=== PATIENT | male | born 1960 | race Caucasian/White ===

== ENCOUNTER 2020-05-09 12:17 | Outpatient (REF) | payer OTHER, SELFPAY ==
[2020-05-09 14:35] LABS: Alanine Aminotransferase 39 U/L (0-40); Anion Gap 12 (12-20); Aspartate Amino Transferase 31 U/L (5-37); Blood Urea Nitrogen 15 mg/dL (9-16); Calcium 9.2 mg/dL (8.4-10.2); Carbon Dioxide 28 mmol/L (22-29); Chloride 100 mmol/L (96-108); Cholesterol 213 mg/dL; Estimated Glomerular Filt Rate > 60; Glucose Fasting 103 mg/dL (60-99); HDL Cholesterol 60 mg/dL; LDL Cholesterol Calculated 114 mg/dl; Potassium 4.3 mmol/l (3.3-5.1); Sodium 136 mmol/L (135-145); Triglycerides 195 mg/dL
== END 2020-05-09 12:18 | disposition home or self-care (01) ==
LOC: HO.HMGCLDS 12:17
PROVIDERS: PCP Internal Medicine; Visit Provider Internal Medicine
DX: I10 Essential (primary) hypertension (principal); E78.2 Mixed hyperlipidemia; Z87.39 Personal history of other diseases of the musculoskeletal system and connective tissue
CPT/HCPCS: 36415; 80048; 80061; 84450; 84460

== ENCOUNTER 2020-05-21 09:26 | Outpatient (REF) | payer OTHER, SELFPAY ==
--- NOTE | 2020-05-21 09:37 | XR_ITS ---
EXAMINATION: XR HIP, LEFT CLINICAL INFORMATION: Left hip pain. COMPARISON: Left hip radiographs dated 05/15/2015. TECHNIQUE: 2 views of the left hip. FINDINGS: No acute fracture or dislocation. Bveu-ku-llefuzgu joint space narrowing with subchondral cirrhosis and marginal osteophytes. No osseous erosion. Phleboliths within the pelvis. XR/XR hip LT min 2V IMPRESSION: Hdyh-td-enztjwvd left and posterior arthritis, slightly progressed when compared to the prior radiographs.
== END 2020-05-21 09:27 | disposition home or self-care (01) ==
LOC: HO.HMGCX 09:26
PROVIDERS: PCP Internal Medicine; Visit Provider Internal Medicine
DX: G89.29 Other chronic pain (principal); M25.552 Pain in left hip; I10 Essential (primary) hypertension; E78.5 Hyperlipidemia, unspecified; C61 Malignant neoplasm of prostate; Z80.42 Family history of malignant neoplasm of prostate; Z23 Encounter for immunization
CPT/HCPCS: 73502

== ENCOUNTER 2021-02-25 10:08 | Outpatient (REF) | payer OTHER, SELFPAY | END 2021-02-25 10:09 | disposition home or self-care (01) | LOC: HO.HMGCLDS 10:08 | PROVIDERS: PCP Internal Medicine; Visit Provider Internal Medicine | DX: Z13.89 Encounter for screening for other disorder (principal) ==

== ENCOUNTER 2021-02-26 10:15 | Outpatient (REF) | payer OTHER, SELFPAY ==
[2021-02-26 11:47] LABS: Alanine Aminotransferase 36 U/L (0-40); Anion Gap 13 (12-20); Aspartate Amino Transferase 24 U/L (5-37); Blood Urea Nitrogen 14 mg/dL (9-16); Calcium 9.7 mg/dL (8.4-10.2); Carbon Dioxide 26 mmol/L (22-29); Chloride 105 mmol/L (96-108); Cholesterol 193 mg/dL; Estimated Glomerular Filt Rate > 60; Glucose Fasting 101 mg/dL (60-99); HDL Cholesterol 58 mg/dL; LDL Cholesterol Calculated 117 mg/dl; Potassium 4.7 mmol/L (3.3-5.1); Sodium 139 mmol/L (135-145); Triglycerides 90 mg/dL
[2021-02-26 12:18] LABS: Vitamin D 25-OH Total 27.1 ng/mL (>30)
== END 2021-02-26 10:16 | disposition home or self-care (01) ==
LOC: HO.HMGCLDS 10:15
PROVIDERS: PCP Internal Medicine; Visit Provider Internal Medicine
DX: I10 Essential (primary) hypertension (principal); E78.5 Hyperlipidemia, unspecified; C61 Malignant neoplasm of prostate; Z80.42 Family history of malignant neoplasm of prostate
CPT/HCPCS: 36415; 80048; 80061; 82306; 84153; 84450; 84460

== ENCOUNTER 2021-09-02 09:49 | Outpatient (REF) | payer OTHER, SELFPAY ==
[2021-09-02 11:48] LABS: Alanine Aminotransferase 36 U/L (0-40); Anion Gap 13 (12-20); Aspartate Amino Transferase 23 U/L (5-37); Blood Urea Nitrogen 15 mg/dL (9-16); Calcium 9.6 mg/dL (8.4-10.2); Carbon Dioxide 23 mmol/L (22-29); Chloride 107 mmol/L (96-108); Cholesterol 213 mg/dL; Estimated Glomerular Filt Rate > 60; Glucose Fasting 105 mg/dL (60-99); HDL Cholesterol 56 mg/dL; LDL Cholesterol Calculated 142 mg/dl; Potassium 4.6 mmol/L (3.3-5.1); Sodium 138 mmol/L (135-145); Triglycerides 77 mg/dL
== END 2021-09-02 09:50 | disposition home or self-care (01) ==
LOC: HO.HMGCLDS 09:49
PROVIDERS: PCP Internal Medicine; Visit Provider Internal Medicine
DX: E78.5 Hyperlipidemia, unspecified (principal); I10 Essential (primary) hypertension
CPT/HCPCS: 36415; 80048; 80061; 82306; 84450; 84460

== ENCOUNTER 2022-03-10 07:29 | Day surgery (SDC) | payer OTHER, SELFPAY ==
[2022-03-03 12:31] VITALS: BMI 28.5
--- NOTE | 2022-03-09 12:42 | HO.ANESPROP2 ---
Documented by User: Samaria Bennett NP 03/09/22 12:43 HPI - Anesthesia Eval Consult details Narrative: 62yo M for Colonoscopy PMFSH Active Problems Active Problems: All Active Problems (Updated 09/04/21 @ 11:48 by Harriet Flanagan MD) Vitamin D deficiency (Acute) Tubular adenoma of colon (Acute) Family history of prostate cancer (Acute) Essential hypertension (Acute) Dyslipidemia (Acute) Chronic left hip pain (Acute) Past Medical History Medical History Chronic left hip pain Dyslipidemia Essential hypertension Family history of prostate cancer Tubular adenoma of colon Vitamin D deficiency Family History Family History Father No problems noted. Mother HTN (hypertension) Brain aneurysm Brother Medical history non-contributory Brother No problems noted. Sister No problems noted. Son No problems noted. Maternal Uncle Prostate cancer Surgical History Surgical History No pertinent past surgical history Social History Social History Housing: House Alcohol intake: current Patient Tobacco Use Status: Never used Tobacco e-Cigarette/Vaping Use: Never Used Use of substances other than those prescribed or required for medical reasons: No Are you DNR?: No Advance Directives: No Advance Directives Information Provided: Yes service: No Current occupational status: employed Cognitive needs: No Hearing needs: No Vision needs: No Meds Allergies Allergy/AdvReac Type Severity Reaction Status Date / Time No Known Allergies Allergy Verified 11/06/21 08:29 Home Medications Medication Instructions Recorded Confirmed Last Taken Type glucosamine 750 qo-loxgab-ilj 2-C 1 tab PO DAILY 05/21/20 03/10/22 Unknown History 30 mg-D3 1,000 unit-mauri 1 mg tablet (Uxknfitxdzm-Jnqweaascek-JOT + vitD) Exam Exam Date and Time: March 09, 2022 1242 Height,Weight and Vital Signs: Height 5 ft 11.5 in Weight 94.347 kg Pertinent Lab Results Pertinent Lab Results: Laboratory Tests 09/02/21 10:01 Sodium 138 Potassium 4.6 Chloride 107 Carbon Dioxide 23 BUN 15 Creatinine 0.80 Documented by User: Papito Forbes MD 03/10/22 08:31 PMFSH Past Medical History Medical History Chronic left hip pain Dyslipidemia Essential hypertension Family history of prostate cancer Tubular adenoma of colon Vitamin D deficiency Family History Family History Father No problems noted. Mother HTN (hypertension) Brain aneurysm Brother Medical history non-contributory Brother No problems noted. Sister No problems noted. Son No problems noted. Maternal Uncle Prostate cancer Family history of problems with anesthesia: No Surgical History Surgical History No pertinent past surgical history History of Problems with Anesthesia: No Social History Social History Housing: House Alcohol intake: current Patient Tobacco Use Status: Never used Tobacco e-Cigarette/Vaping Use: Never Used Use of substances other than those prescribed or required for medical reasons: No Are you DNR?: No Advance Directives: No Advance Directives Information Provided: Yes service: No Current occupational status: employed Cognitive needs: No Hearing needs: No Vision needs: No Meds Allergies Allergy/AdvReac Type Severity Reaction Status Date / Time No Known Allergies Allergy Verified 11/06/21 08:29 Home Medications Medication Instructions Recorded Confirmed Last Taken Type glucosamine 750 gd-wgfbsc-wut 2-C 1 tab PO DAILY 05/21/20 03/10/22 Unknown History 30 mg-D3 1,000 unit-mauri 1 mg tablet (Pphqdgftntm-Cqanejcmozw-CSE + vitD) Exam Airway Mallampati Class: II TM Dist: >3cm Neck ROM: Full Loose/Missing/Broken Teeth: Yes (straight teeth, many chipped globally) Heart: rrr+s1s2 Lungs: cta b/l Assessment and Plan Assessment Anesthesia Assessment: Anesthesia Plan Discussed and Chart Reviewed Final Anesthetic Review Family History of Problems with Anesthesia: No History of Problems with Anesthesia: No NPO: Yes ASA Class: II Final Preanesthetic Review: No Changes in Pt Med Stat, Meds/Allgs Chart Reviewed, Consent Obtained/Reviewed and Anes Risks/Benef Reviewed Patient Risk: Intermediate Procedure Risk: Intermediate Assessment/Block/Sedation in SS: Assess/Block/Sedation-SS Anesthetic Plan Anesthetic Plan: MAC: and Agree w/ Assess. and Plan Disposition: Standard PACU
[2022-03-10 07:37] VITALS: BMI 26.9
[2022-03-10 07:42] VITALS: BP 157/96; PULSE 74; RESP 16; TEMP 36.2; O2SAT 95
[2022-03-10] MEDS: Lactated Ringers 1,000 ML 100 ML IVCONT (08:01)
--- NOTE | 2022-03-10 08:24 | MHC.SHP ---
Pre-Procedural Eval Section A Date of Service: 03/10/22 Section B Chief Complaint: neoplasm of colon Relevant Family History (Specify if Yes): No Relevant Social History: Alcohol Use Present Medications: see Short Stay Collaborative assessment Medical History: Significant History (Chronic left hip pain Dyslipidemia Essential hypertension Family history of prostate cancer Tubular adenoma of colon Vitamin D deficiency) History of Previous Operations: Relevant previous surgery/procedure and date(s) (colonoscopy) Allergies: Allergies Allergy/AdvReac Type Severity Reaction Status Date / Time No Known Allergies Allergy Verified 11/06/21 08:29 Review of Systems Sugical H&P ROS: Negative: Constitution, Cardiovascular, Respiratory, Neurological, Psychiatric, Hem-Onc, Allergic/Immunologic, Gastrointestinal, Genitourinary, Musculoskeletal, Integumentary, Endocrine and Eyes/Ears/Nose/Throat Exam Surgical H&P Exam: Normal: HEENT, Normal: Heart, Normal: Lungs, Normal: Extremities, Normal: Abdomen, Normal: Skin and Normal: Neurological Plan Diagnosis/Plan: Unchanged I have reviewed the history and physical and performed a pertinent physical examination on my patient. No changes have occurred unless specified.
--- NOTE | 2022-03-10 08:35 | W.PM.OPN ---
Operative Note Operative Note Date of Service: 03/10/22 Narrative: Operative Information Procedure Description: Colonoscopy Indication: hx of polyps, screening Anesthesia: MAC COLONOSCOPY Instrument: Olympus variable stiffness pediatric scope 190L Colonoscopy Monitoring: Vital signs and clinical assessment, continuous EKG monitoring, Pulse oximetry, Carbon Dioxide monitoring and blood pressure monitoring were done throughout the procedure. Colon withdrawal time was 10 minutes. Procedure: The patient was placed in the left lateral decubitis position and pre-procedure medications were administered. After a digital rectal examination of the ano-rectum, the video colonoscope was inserted into the rectum and advanced through the colon to the cecum/TI. The colonoscope was slowly withdrawn in a retrograde panoramic fashion and the colon mucosa was carefully examined including a retroflexed view of the rectum. Findings and interventions are described below. Procedure Difficulty: easy Findings: Terminal Ileum-normal Cecum: 8-10 mm sessile polyp removed with cold snare Ascending Colon: x 2 sessile polyps 8-10 mm removed with cold snare and x 1 sessile polyp 5-6 mm removed with cold forceps Transverse Colon -normal Descending Colon: x 1 sessile polyp 8-10 mm removed with cold forceps Sigmoid Colon: mild diverticulosis Rectum: Retroflexion with small internal hemorrhoids, grade I Anorectum - normal Colon preparation: [place] Bowel Preparation Scale Right colon; 2 Transverse colon: 3 Left colon; 2 (0 = Unprepared colon segment with mucosa not seen due to solid stool that cannot be cleared. 1 = Portion of mucosa of the colon segment seen, but other areas of the colon segment not well seen due to staining, residual stool and/or opaque liquid. 2 = Minor amount of residual staining, small fragments of stool and/or opaque liquid, but mucosa of colon segment seen well. 3 = Entire mucosa of colon segment seen well with no residual staining, small fragments of stool or opaque liquid) Impression and Post Procedure Diagnosis: polyps internal hemorrhoids diverticular disease Plan: High fiber diet leaflet Avoid straining at stool, epsom salts and sitz bath, anusol supps or cream Repeat Colonoscopy in 3-4 years due to polyps or earlier if clinically indicated Above findings were reviewed with the patient and relevant handouts were provided if indicated.
[2022-03-10 09:05] VITALS: BP 132/86; PULSE 105; RESP 20; TEMP 36.8; O2SAT 95
[2022-03-10 09:20] VITALS: BP 141/94; PULSE 88; RESP 20; TEMP 36.8; O2SAT 96
== END 2022-03-10 09:53 | disposition home or self-care (01) ==
PROVIDERS: PCP Internal Medicine; Visit Provider Internal Medicine Gastroenterology
PROC: 0DJD8ZZ Inspection of Lower Intestinal Tract, Via Natural or Artificial Opening Endoscopic (ICD-10-PCS; CPT 45378; principal; 2022-03-10 08:30)
DX: Z12.11 Encounter for screening for malignant neoplasm of colon (principal); D12.2 Benign neoplasm of ascending colon; D12.0 Benign neoplasm of cecum; K63.5 Polyp of colon; K57.30 Diverticulosis of large intestine without perforation or abscess without bleeding; K64.0 First degree hemorrhoids; Z86.010 Personal history of colon polyps; I10 Essential (primary) hypertension; E78.5 Hyperlipidemia, unspecified; E55.9 Vitamin D deficiency, unspecified
CPT/HCPCS: 45385; 45380; 88305

== ENCOUNTER 2022-04-06 10:30 | Outpatient (REF) | payer OTHER, SELFPAY ==
[2022-04-06 12:24] LABS: Alanine Aminotransferase 43 U/L (0-40); Anion Gap 12 (12-20); Aspartate Amino Transferase 25 U/L (5-37); Blood Urea Nitrogen 15 mg/dL (9-16); Calcium 9.8 mg/dL (8.4-10.2); Carbon Dioxide 26 mmol/L (22-29); Chloride 104 mmol/L (96-108); Cholesterol 207 mg/dL; Estimated Glomerular Filt Rate > 60; Glucose Fasting 101 mg/dL (60-99); HDL Cholesterol 57 mg/dL; LDL Cholesterol Calculated 129 mg/dl; PSA,Total (Free>4and<10) 2.06 ng/mL (0.00-4.00); Potassium 4.3 mmol/L (3.3-5.1); Sodium 138 mmol/L (135-145); Triglycerides 108 mg/dL; Vitamin D 25-OH Total 27.6 ng/mL (>30)
== END 2022-04-06 10:31 | disposition home or self-care (01) ==
LOC: HO.HMGCLDS 10:30
PROVIDERS: PCP Internal Medicine; Visit Provider Internal Medicine
DX: Z12.5 Encounter for screening for malignant neoplasm of prostate (principal); I10 Essential (primary) hypertension; E78.5 Hyperlipidemia, unspecified; E55.9 Vitamin D deficiency, unspecified; Z80.42 Family history of malignant neoplasm of prostate
CPT/HCPCS: 36415; 80048; 80061; 82306; 84153; 84450; 84460

== ENCOUNTER 2022-11-09 09:31 | Outpatient (REF) | payer OTHER, SELFPAY ==
[2022-11-09 12:04] LABS: Estimated Average Glucose 117 mg/dL; Hemoglobin A1C 152.5599 umol/L; Hemoglobin A1c % 5.7 %
[2022-11-09 13:02] LABS: Alanine Aminotransferase 41 U/L (0-40); Anion Gap 13 (12-20); Aspartate Amino Transferase 38 U/L (5-37); Blood Urea Nitrogen 19 mg/dL (9-16); Calcium 9.7 mg/dL (8.4-10.2); Carbon Dioxide 27 mmol/L (22-29); Chloride 106 mmol/L (96-108); Cholesterol 169 mg/dL; Estimated Glomerular Filt Rate > 60; Glucose Fasting 112 mg/dL (60-99); HDL Cholesterol 60 mg/dL; LDL Cholesterol Calculated 97 mg/dl; Potassium 4.2 mmol/L (3.3-5.1); Sodium 142 mmol/L (135-145); Triglycerides 60 mg/dL; Vitamin D 25-OH Total 54.4 ng/mL (>30)
== END 2022-11-09 09:32 | disposition home or self-care (01) ==
LOC: HO.HMGCLDS 09:31
PROVIDERS: PCP Internal Medicine; Visit Provider Internal Medicine
DX: E55.9 Vitamin D deficiency, unspecified (principal); E78.5 Hyperlipidemia, unspecified; I10 Essential (primary) hypertension
CPT/HCPCS: 36415; 80048; 80061; 82306; 83036; 84450; 84460

== ENCOUNTER 2022-11-16 10:03 | Outpatient (AMB) | payer OTHER, SELFPAY ==
[2022-11-16 10:13] VITALS: BP 130/72; PULSE 66; O2SAT 97; BMI 27.6
--- NOTE | 2022-11-16 10:13 | MHC.PC.OV ---
Vital Signs 11/16/22 10:13 Height 5 ft 11 in Weight 198 lb BMI 27.6 BP 130/72 Blood Pressure Location Rt brachial Position Sitting Pulse 66 Pulse Source Pulse Oximeter Pulse Oximetry (%) 97 Oxygen Delivery Method Room Air Intake Visit Reasons: PE Intake Note: Pt is here today for his PE Allergies No Known Allergies Allergy (Verified 11/16/22 11:00) Medication List - Last Reconciled 11/16/22 by Harriet Flanagan MD atorvastatin 20 mg PO DAILY cholecalciferol (vitamin D3) 125 mcg PO DAILY vpvkoage-pctwk-yyq 2-C-D3-mauri 750-30-1,000-1 xj-mq-uzbh-mg (Nhcturctymb-Cocwnzwgfgz-GKU + vitD) 1 tab PO DAILY lisinopril 20 mg PO DAILY magnesium 250 mg PO DAILY omega 1-nrz-vdg-fish oil 1,000 mg (120 mg-180 mg) (Fish Oil) 1 cap PO DAILY potassium citrate mg PO psyllium husk (Metamucil) 1 tbsp PO DAILY Tobacco use date assessed: 11/16/22 Dental Screening Dental Screen Date: 11/16/22 Did you have a dental visit in the last 12 months?: Yes Did you have a dental problem in the last 6 months where you did not have access to dental care?: No Was dental information given to patient?: Patient has dentist HPI PE HPI Details And impaired fasting glucose, 62-year-old male with dyslipidemia, history of gouty arthritis, hypertension, here today for his physical exam. He had recent fasting labs done which showed lipids within normal limits,, but fasting blood sugar is elevated at 1 12 mg/dL. The rest of his labs all came back within normal limits. He has been feeling well except for occasional episodes of swelling and pain in his right big toe sometimes with on his left. Patient notices this after he eats a lot of seafood, particularly shellfish. He was given indomethacin by his brother, which has helped, would like a prescription of his own. He is up-to-date with all his vaccines except for his COVID booster which she does not want to get, and has not also had his shingles vaccine. He is up-to-date with screening colonoscopy. [facility] Medical History Chronic left hip pain Dyslipidemia Essential hypertension Family history of prostate cancer History of gout Tubular adenoma of colon Vitamin D deficiency Surgical History History of colonoscopy Family History Father No problems noted. Mother HTN (hypertension) Brain aneurysm Brother Medical history non-contributory Brother No problems noted. Sister No problems noted. Son No problems noted. Maternal Uncle Prostate cancer Social History Housing: House Alcohol intake: current Patient Tobacco Use Status: Never used Tobacco e-Cigarette/Vaping Use: Never Used service: No Current occupational status: employed Cognitive needs: No Hearing needs: No Vision needs: No Questionnaire PHQ-9 Over the last 2 weeks, how often have you been bothered by any of the following problems? 1. Little interest or pleasure in doing things: not at all 2. Feeling down, depressed, or hopeless: not at all 3. Trouble falling or staying asleep, or sleeping too much: not at all 4. Feeling tired or having little energy: not at all 5. Poor appetite or overeating: not at all 6. Feeling bad about yourself - or that you are a failure or have let yourself or your family down: not at all 7. Trouble concentrating on things, such as reading the newspaper or watching television: not at all 8. Moving or speaking so slowly that other people could have noticed. Or the opposite - being so fidgety or restless that you have been moving around a lot more than usual: not at all 9. Thoughts that you would be better off or of hurting yourself in some way: not at all Total score: 0 Depression Screening Interpretation: Negative 25403 - PHQ-9 Billing: Yes Source: Developed by Drs. Doug Mendoza, Mandi Jones, Reynaldo Ventura and colleagues, with an educational franci from [employer]. Thrive Questionnaire Date Thrive assessed: 11/16/22 I am a: Patient What is your living situation today?: I have a steady place to live Within the past 12 months, did the food you bought not last and you didn't have the money to get more?: Never true Within the past 12 months, did you worry whether your food would run out before you got money to buy more?: Never true Do you have trouble paying for medicines?: No Do you have trouble getting transportation to medical appointments?: No Do you have trouble paying your heating and electricity bill?: No Do you have trouble taking care of your child, family member or friend?: No Do you have trouble with day-to-day activities such as bathing, preparing meals, shopping, managing finances, etc.?: No Are you currently unemployed and looking for a job?: No Are you interested in more education?: No AUDIT C Alcohol Use Questionnaire (AUDIT-C) 1. How often do you have a drink containing alcohol?: 2-4 times a month 2. How many drinks containing alcohol do you have on a typical day when you are drinking?: 1 or 2 3. How often do you have six or more drinks on one occasion?: Never Total Score: 2 JEFF-7 AMB Questionnaire JEFF-7 Date JEFF - 7 assessed: 11/16/22 Feeling nervous, anxious, or on edge: 0 = Not at all Not being able to stop or control worryin = Not at all Worrying too much about different things: 0 = Not at all Trouble relaxin = Not at all Being so restless that it is hard to sit still: 0 = Not at all Becoming easily annoyed or irritable: 0 = Not at all Feeling afraid as if something awful might happen: 0 = Not at all Total JEFF-7 score (0-4 normal; 5-9 mild; 10-14 moderate; 15-21 severe): 0 Source: Developed by Drs. Doug Mendoza, Mandi Jones, Reynaldo Ventura and colleagues, with an educational franci from [employer]. JEFF-7 Assessment Billing JEFF-7 Assessment Tool: JEFF-7 Assessment 22528 Review of Systems Const Denies fatigue, Denies fever(s) and Denies poor appetite Eyes Denies change in vision ENT Denies dysphagia, Denies throat swelling and Denies tongue swelling Card Reports no additional complaints Resp Reports no additional complaints GI Denies abdominal pain, Denies melena, Denies bloating, Denies hematochezia, Denies dysphagia, Denies heartburn, Denies nausea, Denies vomiting and Denies hematemesis Reports no additional complaints Musc Reports as per HPI Skin/Breast Denies pruritus, Denies lesions and Denies photosensitivity Neuro Denies Abnormal speech present Psych Reports no additional complaints Endo Denies fatigue Barney/Lymph Reports no additional complaints Aller/Immun Denies throat swelling and Denies tongue swelling Physical exam (Primary Care) Vital Signs: Last Vital Signs Pulse 66 11/16/22 10:13 BP 130/72 11/16/22 10:13 Pulse Ox 97 11/16/22 10:13 Oxygen Delivery Method Room Air 11/16/22 10:13 BMI result Body Mass Index 27.6 BMI Assessment/Plan discussion: High BMI High, discussed plan: lifestyle, weight reduction, dietary and physical activity Tobacco/Smoking Status: Tobacco use Status Tobacco use date assessed 11/16/22 11/16/22 10:18 Patient Tobacco Use Status Never used Tobacco 11/16/22 10:18 e-Cigarette/Vaping Use Never Used 11/16/22 10:18 PHQ-9: PHQ-9 Score PHQ-9: Total score 0 11/16/22 11:09 Depression Screening Interpretation: Negative Thrive Assessment: Date of Thrive Assessment Date Thrive assessed 11/16/22 11/16/22 11:09 Const General: comfortable, no acute distress and alert Nutritional Appearance: overweight Orientation/consciousness: patient oriented x3 HENMT Mouth: Normal oral and palatal mucosa present and moist mucous membranes Eyes General: appearance normal, both eyes and all related structures Neck Neck: Yes full ROM, Yes no lymphadenopathy and Yes supple Thyroid: Thyroid normal Chest Chest palpation & inspection: normal inspection of the chest Resp Auscultation: clear to auscultation bilaterally Cardio Rate: regular rate Rhythm: regular rhythm Heart sounds: S1 normal heart sound present and S2 normal heart sound present GI Palpation (GI): Soft to palpation, nontender, no guarding and no masses Auscultation: normal bowel sounds Male General Exam: Yes normal external exam Back/Spine/Pelvis Back: No back tenderness Skin Other: Logan macular lesion noted on right cheek, and erythematous raised lesions noted on tip of his nose., black irregularly shaped raced skin lesion on anterior chest Neuro General: patient oriented x3, gait normal, tone normal, moves all extremities, Normal light touch and pain sensation, no focal motor deficits and CN's II-XI intact bilaterally Speech: No Abnormal speech present Extrem General: Yes full ROM, Yes no joint enlargement, Yes no pedal edema and Yes normal gait Psych Appearance: grossly normal and well kempt Mental Status: mental status grossly normal Speech and movement: Normal speech and movement present Affect: normal affect Attitude: cooperative Thought process: Normal thought process present Results Reviewed Results Reviewed: NTERED: 11/09/22 FREDDY STERLING: ORDERED: Met Prof Fast, AST, ALT, Lipid Panel, Vitamin D 25-OH Test Result Flag Reference Site Sodium 142 135-145 mmol/L Potassium 4.2 3.3-5.1 mmol/L CL 106 96-108 mmol/L CO2 27 22-29 mmol/L Gap 13 12-20 BUN 19 H 9-16 mg/dL Creat 0.89 0.5-1.4 mg/dL EGFR > 60 NOTE: For -[place] individuals, multiply the result by 1.210. Chronic Kidney Disease: Estimated GFR < 60 mL/min/1.73m2 Severe Kidney Disease: Estimated GFR < 15 mL/min/1.73m2 FBS 112 H 60-99 mg/dL A fasting glucose from 100-125 mg/dl is considered impaired (pre-diabetes). CA 9.7 8.4-10.2 mg/dL AST (GOT) 38 H 5-37 U/L ALT (GPT) 41 H 0-40 U/L Triglyceride 60 mg/dL Desirable Triglyceride: less than 150 mg/dL Borderline High Triglyceride 150-199 mg/dL High Triglyceride: 200-499 mg/dL Very High Triglyceride: greater than or equal to 5OO mg/dL Chol 169 mg/dL Desirable Cholesterol: less than 200 mg/dL Borderline High Cholesterol: 200-239 mg/dL High Cholesterol: greater than 239 mg/dL LDL Calculated 97 mg/dl Desirable LDL: less than 100 mg/dL Near Optimal/Above Optimal LDL: 110-129 mg/dL Borderline High LDL: 130-159 mg/dL High LDL: 160-189 mg/dL Very High LDL: greater than or equal to 190 mg/dL HDL 60 mg/dL Desirable HDL: greater than 40 mg/dL Note: This HDL assay may give artificially low results in patients with liver disease. Vit D 25-OH Tot 54.4 >30 ng/mL Health Based Reference Values* < 20 ng/mL Deficient 20-30 ng/mL Insufficient > 30 ng/mL Sufficient Assessment and Plan Assessment & Plan (1) Annual visit for general adult medical examination with abnormal findings: Code(s): Z00.01 - Encounter for general adult medical examination with abnormal findings Plan: Reviewed and discussed recent fasting lab results with patient. Recommended dental visit every 6 months and regular eye exams, at least every 2 years. Take adequate calcium in diet and vitamin-D 3 at 2000 IU per cap once a day, in addition to weight-bearing exercises to help maintain good muscle tone and weight control. Advised to do regular ers self-testicular exam to check for any mass. Up-to-date with his vaccinations, but does not want to get COVID booster, reminded to get his shingles vaccine, up-to-date with his colonoscopy screening. (2) Essential hypertension: Code(s): I10 - Essential (primary) hypertension Plan: Blood pressure at goal of less than 130/80. Continue with current medication. Reinforced importance of following a low sodium diet, getting regular exercise, and lowering stress levels. (3) Dyslipidemia: Code(s): E78.5 - Hyperlipidemia, unspecified Plan: Reviewed recent fasting lipid profile with patient with levels within normal limits . Continue with atorvastatin , but decrease dosing frequency to 20 mg every other day , in addition to adherence to low-cholesterol diet and regular exercise, at least 30 minutes 3 to 4 times a week. Advised patient to make healthy food choices, eat more fruits, vegetables, whole grains, wild caught fish and low-fat dairy. Limit amount of meat and fried or fatty food products, as well as processed foods and fast foods. Follow-up scheduled with repeat fasting lipid panel in 3 months. (4) Lesion of skin of face: Code(s): L98.9 - Disorder of the skin and subcutaneous tissue, unspecified Plan: Referred to dermatology for further evaluation management and for skin cancer screening (5) History of gout: Code(s): Z87.39 - Personal history of other diseases of the musculoskeletal system and connective tissue Plan: Advised to follow a low purine diet, will check serum uric acid on next lab draw. Prescription sent for indomethacin 50 mg per capsule to take once a day only as needed for severe joint pain and swelling. Orders: Orders Lipid Panel 3 Months E55.9 - Vitamin D deficiency, unspecified, E78.5 - Hyperlipidemia, unspecified, I10 - Essential (primary) hypertension, Z00.01 - Encounter for general adult medical examination with abnormal findings Alanine Aminotransferase 3 Months E55.9 - Vitamin D deficiency, unspecified, E78.5 - Hyperlipidemia, unspecified, I10 - Essential (primary) hypertension, Z00.01 - Encounter for general adult medical examination with abnormal findings Aspartate Amino Transferase 3 Months E55.9 - Vitamin D deficiency, unspecified, E78.5 - Hyperlipidemia, unspecified, I10 - Essential (primary) hypertension, Z00.01 - Encounter for general adult medical examination with abnormal findings Basic Metabolic Panel Fasting 3 Months E55.9 - Vitamin D deficiency, unspecified, E78.5 - Hyperlipidemia, unspecified, I10 - Essential (primary) hypertension, Z00.01 - Encounter for general adult medical examination with abnormal findings Uric Acid 3 Months E55.9 - Vitamin D deficiency, unspecified, E78.5 - Hyperlipidemia, unspecified, I10 - Essential (primary) hypertension, Z00.01 - Encounter for general adult medical examination with abnormal findings Vitamin D 25-OH Total 3 Months E55.9 - Vitamin D deficiency, unspecified, E78.5 - Hyperlipidemia, unspecified, I10 - Essential (primary) hypertension, Z00.01 - Encounter for general adult medical examination with abnormal findings Referrals Dermatology Referral L98.9 - Disorder of the skin and subcutaneous tissue, unspecified, Z12.83 - Encounter for screening for malignant neoplasm of skin Medications: New indomethacin administer with food or milk 25 mg PO BID 60 caps 0RF Z87.39 - Personal history of other diseases of the musculoskeletal system and connective tissue Changed From atorvastatin 20 mg PO DAILY 90 tabs 3RF To atorvastatin 20 mg PO Q2D 90 tabs 3RF Coding Level of Care Code Est Pt Prev Care 40-64y(89437) Diagnoses Annual visit for general adult medical examination with abnormal findings Z00.01 Essential hypertension I10 Dyslipidemia E78.5 Lesion of skin of face L98.9 History of gout Z87.39 Additional Codes JEFF-7 Assessment Billing - JEFF-7 Assessment Tool: JEFF-7 Assessment 55630 ([id number])
== END 2022-11-16 12:42 | disposition home or self-care (01) ==
PROVIDERS: Visit Provider Internal Medicine
DX: Z00.01 Encounter for general adult medical examination with abnormal findings (principal); I10 Essential (primary) hypertension; Z87.39 Personal history of other diseases of the musculoskeletal system and connective tissue; E78.5 Hyperlipidemia, unspecified; L98.9 Disorder of the skin and subcutaneous tissue, unspecified
CPT/HCPCS: 99396

== ENCOUNTER 2022-11-30 14:48 | Outpatient (AMB) | payer OTHER, SELFPAY ==
[2022-11-30 16:25] VITALS: BP 128/70; PULSE 70; TEMP 36.6; O2SAT 98; BMI 27.6
--- NOTE | 2022-11-30 16:25 | MHC.OFFWIV ---
Intake Vital Signs 11/30/22 16:25 Height 5 ft 11 in Weight 198 lb BMI 27.6 BP 128/70 Blood Pressure Location Lt brachial Position Sitting Pulse 70 Pulse Source Pulse Oximeter Temp 97.8 F Temp Source Temporal Artery Scan Pulse Oximetry (%) 98 Oxygen Delivery Method Room Air Intake Visit Reasons: EST/losing voice/[phone] Intake Note: pt is here for c/o losing voice for 2 weeks Patient Tobacco Use Status: Never used Tobacco Allergies No Known Allergies Allergy (Verified 11/30/22 16:26) Medication List - Last Reconciled 11/30/22 by Shasha Roth PA-C atorvastatin 20 mg PO Q2D cholecalciferol (vitamin D3) 125 mcg PO DAILY zvqiaydp-tyscf-ynv 2-C-D3-mauri 750-30-1,000-1 in-hq-dqez-mg (Mzsoczolagy-Rfvriikopnt-TBN + vitD) 1 tab PO DAILY indomethacin 25 mg PO BID lisinopril 20 mg PO DAILY magnesium 250 mg PO DAILY psyllium husk (Metamucil) 1 tbsp PO DAILY Do you need a note to return to daycare/school/sports/work: No HPI HPI Comments History of Present Illness Details This is a 62-year-old male with a past medical history of hypertension and hyperlipidemia presenting for evaluation of hoarseness x1 week. Patient denies having any fevers, chills, sore throat, ear pain. shortness of breath or difficulty swallowing. Patient does states that he wakes with a cough in the morning with mild phlegm. Patient denies any hemoptysis. Patient is not taking any xiux-yqv-wlkmbzl medication for treatment of his symptoms. [facility] Medical History Chronic left hip pain Dyslipidemia Essential hypertension Family history of prostate cancer History of gout Tubular adenoma of colon Vitamin D deficiency Surgical History History of colonoscopy Family History Father No problems noted. Mother HTN (hypertension) Brain aneurysm Brother Medical history non-contributory Brother No problems noted. Sister No problems noted. Son No problems noted. Maternal Uncle Prostate cancer Social History Housing: House Alcohol intake: current Patient Tobacco Use Status: Never used Tobacco e-Cigarette/Vaping Use: Never Used service: No Current occupational status: employed Cognitive needs: No Hearing needs: No Vision needs: No Review of Systems Const All systems reviewed & are unremarkable except as noted in HPI and below Denies chills, Denies fatigue and Denies fever(s) Eyes Reports no additional complaints and Denies itchy eyes ENT Denies otalgia, Denies facial pain, Reports hoarseness, Denies lip swelling, Denies sore throat, Denies throat swelling and Denies tongue swelling Card Reports no additional complaints Resp Reports cough (with phlegm in the morning only) and Denies hemoptysis GI Reports no additional complaints Reports no additional complaints Musc Reports no additional complaints Skin/Breast Reports system reviewed and no additional complaints, except as documented Psych Reports no additional complaints Endo Denies fatigue Aller/Immun Denies itchy eyes, Denies lip swelling, Denies throat swelling and Denies tongue swelling Physical Exam Vital Signs: Last Vital Signs Temp 97.8 F 11/30/22 16:25 Pulse 70 11/30/22 16:25 BP 128/70 11/30/22 16:25 Pulse Ox 98 11/30/22 16:25 Oxygen Delivery Method Room Air 11/30/22 16:25 BMI result Body Mass Index 27.6 Const General: cooperative, healthy appearing, no acute distress and well developed; No ill appearing, intoxicated appearing or lethargic Nutritional Appearance: average body habitus Orientation/consciousness: patient oriented x3 and No lethargic Limitations: no limitations HEENT Head: Yes normal to inspection and Yes normocephalic Ears: hearing grossly normal bilaterally, external ears normal and TM abnormal bulging bilateral; not erythematous, with no fluid behind the TM, not perforated and not scarred General nose exam: Normal external nose present Face and sinus: Yes sinuses nontender Mouth: moist mucous membranes and other (There is no edema, erythema or exudates of the posterior oropharynx) Throat: Yes posterior oropharynx normal Eyes General: appearance normal, both eyes and all related structures Conjunctivae: conjunctivae normal Pupils: Equal, round and reactive pupils present EOM: EOMs intact bilaterally Resp Effort & Inspection: normal respiratory effort Auscultation: clear to auscultation bilaterally Neuro General: patient oriented x3 Cranial nerves: Yes Equal, round and reactive pupils present Cognition (Neuro): normal cognition Psych Appearance: grossly normal Speech and movement: Normal speech and movement present Affect: normal affect Attitude: cooperative Thought process: Normal thought process present Thought content: Normal thought content present Insight: Good insight present (Psych) Assessment & Plan Assessment & Plan (1) Allergic sinusitis: Code(s): J30.9 - Allergic rhinitis, unspecified (2) Hoarseness of voice: Code(s): R49.0 - Dysphonia Plan Patient will be discharged home and instructed to use loratadine once daily for at least 2 weeks. He will follow his primary care provider as an outpatient within 7-10 days for a re-evaluation of his symptoms. Coding Level of Care Code Established Pt Est Pt Level 2 (38749) Patient Type Established History Problem Focused Exam Problem Focused Medical Decision Making Low Complexity Diagnoses Allergic sinusitis J30.9 Hoarseness of voice R49.0 Time Spent (min) 15
== END 2022-11-30 16:47 | disposition home or self-care (01) ==
PROVIDERS: PCP Internal Medicine; Visit Provider Physician Assistant
DX: J30.9 Allergic rhinitis, unspecified (principal); R49.0 Dysphonia
CPT/HCPCS: 99212

== ENCOUNTER 2023-02-09 10:42 | Outpatient (REF) | payer OTHER, SELFPAY ==
[2023-02-09 14:32] LABS: Alanine Aminotransferase 37 U/L (0-40); Anion Gap 15 (12-20); Aspartate Amino Transferase 31 U/L (5-37); Blood Urea Nitrogen 16 mg/dL (9-16); Calcium 9.8 mg/dL (8.4-10.2); Carbon Dioxide 25 mmol/L (22-29); Chloride 104 mmol/L (96-108); Cholesterol 188 mg/dL (<200); Estimated Glomerular Filt Rate > 60; Glucose Fasting 106 mg/dL (60-99); HDL Cholesterol 59 mg/dL (>40); LDL Cholesterol Calculated 116 mg/dL (<100); Potassium 4.5 mmol/L (3.3-5.1); Sodium 139 mmol/L (135-145); Triglycerides 67 mg/dL (<150); Uric Acid 8.8 mg/dL (3.4-7.0)
[2023-02-09 14:38] LABS: Vitamin D 25-OH Total 93.6 ng/mL (>30)
== END 2023-02-09 10:43 | disposition home or self-care (01) ==
LOC: HO.HMGCLDS 10:42
PROVIDERS: PCP Internal Medicine; Visit Provider Internal Medicine
DX: Z00.01 Encounter for general adult medical examination with abnormal findings (principal); E55.9 Vitamin D deficiency, unspecified; I10 Essential (primary) hypertension; E78.5 Hyperlipidemia, unspecified
CPT/HCPCS: 36415; 80048; 80061; 82306; 84450; 84460; 84550

== ENCOUNTER 2023-02-16 08:46 | Outpatient (AMB) | payer OTHER, SELFPAY ==
[2023-02-16 09:07] VITALS: BP 130/88; PULSE 71; O2SAT 97; BMI 28.1
--- NOTE | 2023-02-16 09:07 | MHC.PC.OV ---
Vital Signs 02/16/23 09:07 Height 5 ft 11 in Weight 201 lb 4 oz BMI 28.1 BP 130/88 Blood Pressure Location Lt brachial Position Sitting Pulse 71 Pulse Source Pulse Oximeter Pulse Oximetry (%) 97 Oxygen Delivery Method Room Air Intake Visit Reasons: 3mo. lipids after med adj. and gout Intake Note: pt is here to follow up for lab results and to follow up for gout Allergies No Known Allergies Allergy (Verified 11/18/23 09:32) Medication List - Last Reconciled 02/16/23 by Harriet Flanagan MD allopurinol 100 mg PO DAILY atorvastatin 10 mg PO DAILY cholecalciferol (vitamin D3) 125 mcg PO DAILY gzcncvqb-tfqxt-qkb 2-C-D3-mauri 750-30-1,000-1 te-lj-yoor-mg (Vdkunrxlpfj-Vhitpzfhmen-IXO + vitD) 1 tab PO DAILY indomethacin 25 mg PO BID PRN lisinopril 20 mg PO DAILY magnesium 250 mg PO DAILY psyllium husk (Metamucil) 1 tbsp PO DAILY Tobacco use date assessed: 02/16/23 Dental Screening Dental Screen Date: 02/16/23 Did you have a dental visit in the last 12 months?: Yes Did you have a dental problem in the last 6 months where you did not have access to dental care?: No Was dental information given to patient?: Patient has dentist HPI 3mo. lipids after med adj. and gout HPI Details 63-year-old male here today for follow-up on his lipids. He has been taking 20 mg of atorvastatin every other day, and had recent fasting lipid panel done which showed lipids within normal limits. His uric acid level however was noted to be elevated and patient has been complaining of intermittent episodes of pain and swelling in joints. [facility] Medical History History of gout Elevated liver enzymes History of adenomatous polyp of colon History of basal cell cancer Vitamin D deficiency Family history of prostate cancer Essential hypertension Dyslipidemia Chronic left hip pain Surgical History History of colonoscopy Family History Father No problems noted. Mother HTN (hypertension) Brain aneurysm Brother Medical history non-contributory Brother No problems noted. Sister No problems noted. Son No problems noted. Maternal Uncle Prostate cancer Social History Housing: House Alcohol intake: current Patient Tobacco Use Status: Never used Tobacco e-Cigarette/Vaping Use: Never Used service: No Current occupational status: employed Cognitive needs: No Hearing needs: No Vision needs: No Questionnaire Thrive Questionnaire Date Thrive assessed: 11/16/22 JEFF-7 AMB Questionnaire JEFF-7 Date JEFF - 7 assessed: 11/16/22 Source: Developed by Drs. Doug Mendoza, Mandi Jones, Reynaldo Ventura and colleagues, with an educational franci from [employer] Document Preparation. Review of Systems Const Denies chills, Denies fatigue and Denies fever(s) Eyes Reports no additional complaints Card Reports no additional complaints GI Reports no additional complaints Reports no additional complaints Musc Reports no additional complaints Skin/Breast Details: Sees [facility] for follow-up every 6 month Reports system reviewed and no additional complaints, except as documented Neuro Denies Abnormal speech present Psych Reports no additional complaints Endo Denies fatigue Barney/Lymph Reports no additional complaints Physical exam (Primary Care) Vital Signs: Last Vital Signs Pulse 71 02/16/23 09:07 BP 130/88 02/16/23 09:07 Pulse Ox 97 02/16/23 09:07 Oxygen Delivery Method Room Air 02/16/23 09:07 BMI result Body Mass Index 28.1 Tobacco/Smoking Status: Tobacco use Status Tobacco use date assessed 02/16/23 02/16/23 09:11 Patient Tobacco Use Status Never used Tobacco 02/16/23 09:07 e-Cigarette/Vaping Use Never Used 02/16/23 09:07 Thrive Assessment: Date of Thrive Assessment Date Thrive assessed 11/16/22 02/16/23 09:07 Const General: comfortable, no acute distress and alert Nutritional Appearance: overweight Orientation/consciousness: patient oriented x3 HENMT Mouth: Normal oral and palatal mucosa present and moist mucous membranes Eyes General: appearance normal, both eyes and all related structures Neck Neck: Yes full ROM, Yes no lymphadenopathy and Yes supple Thyroid: Thyroid normal Resp Auscultation: clear to auscultation bilaterally Cardio Rate: regular rate Rhythm: regular rhythm Heart sounds: S1 normal heart sound present and S2 normal heart sound present GI Palpation (GI): Soft to palpation, nontender, no guarding and no masses Auscultation: normal bowel sounds Back/Spine/Pelvis Back: No back tenderness Skin General skin exam: no rashes or lesions noted Neuro General: patient oriented x3, gait normal, tone normal, moves all extremities, Normal light touch and pain sensation, no focal motor deficits and CN's II-XI intact bilaterally Speech: No Abnormal speech present Extrem General: Yes full ROM, Yes no joint enlargement, Yes no pedal edema and Yes normal gait Office Procedures Flu Questionnaire Does the patient have a severe egg allergy?: No Does the patient have severe life threatening allergies?: No Does the patient have a fever or illness today?: No Has the patient ever had Guillain-[place] Syndrome?: No Has the patient ever had any past reaction to a flu shot?: No Immunizations flu vacc [id number] 6mos up(PF) 60 mcg(15 mcgx4)/0.5 mL IM syringe Performing Provider: Harriet Flanagan MD [facility] Administered by: Pamela Crawford CMA on 02/16/23 09:25 Dose Route Admin Location Dispensed Lot Number Expiration Date NDC Casing Crew Pusher 0.5 mL IM Right Deltoid 0.5 mL [id number] 10/17/23 [id number] [employer] VIS Given Date VIS Provided VIS Publication Date 02/16/23 Single Vaccine 20 Eligibility Eligibility Date Funding Source Not [facility] Eligible 02/16/23 Private Results Reviewed Results Reviewed: SPEC : [id number] RAMIRO: 02/09/23 STATUS: COMP REQ : [id number] RECD: 02/09/[address]: Harriet Flanagan MD COMP: 02/09/238 ENTERED: 02/09/23-[address]: ORDERED: Met Prof Fast, Uric, AST, ALT, Lipid Panel, Vitamin D 25-OH Test Result Flag Reference Site Sodium 139 135-145 mmol/L Potassium 4.5 3.3-5.1 mmol/L CL 104 96-108 mmol/L CO2 25 22-29 mmol/L Gap 15 12-20 BUN 16 9-16 mg/dL Creat 0.81 0.5-1.4 mg/dL EGFR > 60 NOTE: For -[place] individuals, multiply the result by 1.210. Chronic Kidney Disease: Estimated GFR < 60 mL/min/1.73m2 Severe Kidney Disease: Estimated GFR < 15 mL/min/1.73m2 FBS 106 H 60-99 mg/dL A fasting glucose from 100-125 mg/dl is considered impaired (pre-diabetes). Uric Acid 8.8 H 3.4-7.0 mg/dL CA 9.8 8.4-10.2 mg/dL AST (GOT) 31 5-37 U/L ALT (GPT) 37 0-40 U/L Triglyceride 67 <150 mg/dL Desirable Triglyceride: less than 150 mg/dL Borderline High Triglyceride 150-199 mg/dL High Triglyceride: 200-499 mg/dL Very High Triglyceride: greater than or equal to 5OO mg/dL Cholesterol 188 <200 mg/dL Desirable Cholesterol: less than 200 mg/dL Borderline High Cholesterol: 200-239 mg/dL High Cholesterol: greater than 239 mg/dL LDL Calculated 116 H <100 mg/dL Desirable LDL: less than 100 mg/dL Near Optimal/Above Optimal LDL: 110-129 mg/dL Borderline High LDL: 130-159 mg/dL High LDL: 160-189 mg/dL Very High LDL: greater than or equal to 190 mg/dL HDL 59 >40 mg/dL Desirable HDL: greater than 40 mg/dL Note: This HDL assay may give artificially low results in patients with liver disease. Vit D 25-OH Tot 93.6 >30 ng/mL Health Based Reference Values* < 20 ng/mL Deficient 20-30 ng/mL Insufficient > 30 ng/mL Sufficient Assessment and Plan Assessment & Plan (1) Dyslipidemia: Code(s): E78.5 - Hyperlipidemia, unspecified Plan: Reviewed recent fasting lipid profile with patient with levels within normal limit . Continue with atorvastatin but now decrease dose to 10 mg taken 1 tablet daily , in addition to adherence to low-cholesterol diet and regular exercise, at least 30 minutes 3 to 4 times a week. Advised patient to make healthy food choices, eat more fruits, vegetables, whole grains, wild caught fish and low-fat dairy. Limit amount of meat and fried or fatty food products, as well as processed foods and fast foods. Follow-up scheduled with repeat fasting lipid panel in 6 months. (2) Essential hypertension: Code(s): I10 - Essential (primary) hypertension Plan: Blood pressure stable controlled on lisinopril 20 mg taken once a (3) Vitamin D deficiency: Code(s): E55.9 - Vitamin D deficiency, unspecified Plan: Continue taking vitamin-D 3 supplements daily (4) History of gout: Code(s): Z87.39 - Personal history of other diseases of the musculoskeletal system and connective tissue Plan: Prescription sent for allopurinol 100 mg per tablet taken once a day, cut back on high purine diet, prescription also sent for indomethacin 25 mg taken 1 tablet once a day as needed for acute attacks of gout cut back on alcohol intake Orders: Orders Lipid Panel 11/15/23 Z87.39 - Personal history of other diseases of the musculoskeletal system and connective tissue, E55.9 - Vitamin D deficiency, unspecified, Z80.42 - Family history of malignant neoplasm of prostate, I10 - Essential (primary) hypertension, E78.5 - Hyperlipidemia, unspecified Basic Metabolic Panel Fasting 11/15/23 Z87.39 - Personal history of other diseases of the musculoskeletal system and connective tissue, E55.9 - Vitamin D deficiency, unspecified, Z80.42 - Family history of malignant neoplasm of prostate, I10 - Essential (primary) hypertension, E78.5 - Hyperlipidemia, unspecified Alanine Aminotransferase 11/15/23 Z87.39 - Personal history of other diseases of the musculoskeletal system and connective tissue, E55.9 - Vitamin D deficiency, unspecified, Z80.42 - Family history of malignant neoplasm of prostate, I10 - Essential (primary) hypertension, E78.5 - Hyperlipidemia, unspecified Vitamin D 25-OH Total 11/15/23 Z87.39 - Personal history of other diseases of the musculoskeletal system and connective tissue, E55.9 - Vitamin D deficiency, unspecified, Z80.42 - Family history of malignant neoplasm of prostate, I10 - Essential (primary) hypertension, E78.5 - Hyperlipidemia, unspecified PSA,Total (Free>4and<10) 11/15/23 Z87.39 - Personal history of other diseases of the musculoskeletal system and connective tissue, E55.9 - Vitamin D deficiency, unspecified, Z80.42 - Family history of malignant neoplasm of prostate, I10 - Essential (primary) hypertension, E78.5 - Hyperlipidemia, unspecified Influenza [id number] Immunization 02/16/23 Z23 - Encounter for immunization Uric Acid 11/15/23 Z87.39 - Personal history of other diseases of the musculoskeletal system and connective tissue, E55.9 - Vitamin D deficiency, unspecified, Z80.42 - Family history of malignant neoplasm of prostate, I10 - Essential (primary) hypertension, E78.5 - Hyperlipidemia, unspecified Aspartate Amino Transferase 11/15/23 Z87.39 - Personal history of other diseases of the musculoskeletal system and connective tissue, E55.9 - Vitamin D deficiency, unspecified, Z80.42 - Family history of malignant neoplasm of prostate, I10 - Essential (primary) hypertension, E78.5 - Hyperlipidemia, unspecified Medications: New allopurinol 100 mg PO DAILY 90 tabs 2RF atorvastatin 10 mg PO DAILY 90 tabs 3RF indomethacin administer with food or milk 25 mg PO BID PRN 30 caps 0RF gout Z87.39 - Personal history of other diseases of the musculoskeletal system and connective tissue Refilled lisinopril 20 mg PO DAILY 90 tabs 3RF Discontinued atorvastatin Discontinued Reason: Doctor's Order 20 mg PO Q2D 90 tabs 3RF Coding Level of Care Code Est Pt Level 4 (62915) Diagnoses Dyslipidemia E78.5 Essential hypertension I10 Vitamin D deficiency E55.9 History of gout Z87.39
== END 2023-02-16 10:44 | disposition home or self-care (01) ==
PROVIDERS: PCP Internal Medicine; Visit Provider Internal Medicine
DX: E78.5 Hyperlipidemia, unspecified (principal); I10 Essential (primary) hypertension; E55.9 Vitamin D deficiency, unspecified; Z87.39 Personal history of other diseases of the musculoskeletal system and connective tissue
CPT/HCPCS: 90471; 90686; 99499

== ENCOUNTER 2023-11-10 11:40 | Outpatient (REF) | payer OTHER, SELFPAY ==
[2023-11-10 14:01] LABS: Alanine Aminotransferase 45 U/L (0-40); Anion Gap 15 (12-20); Aspartate Amino Transferase 38 U/L (5-37); Blood Urea Nitrogen 14 mg/dL (9-16); Calcium 9.8 mg/dL (8.4-10.2); Carbon Dioxide 24 mmol/L (22-29); Chloride 106 mmol/L (96-108); Cholesterol 184 mg/dL (<200); Estimated Glomerular Filt Rate > 60; Glucose Fasting 113 mg/dL (60-99); HDL Cholesterol 64 mg/dL (>40); LDL Cholesterol Calculated 105 mg/dL (<100); Potassium 4.3 mmol/L (3.3-5.1); Sodium 141 mmol/L (135-145); Triglycerides 77 mg/dL (<150); Uric Acid 5.3 mg/dL (3.4-7.0)
[2023-11-10 14:10] LABS: PSA,Total (Free>4and<10) 2.24 ng/mL (0.00-4.00)
== END 2023-11-10 11:41 | disposition home or self-care (01) ==
LOC: HO.HMGCLDS 11:40
PROVIDERS: PCP Internal Medicine; Visit Provider Internal Medicine
DX: I10 Essential (primary) hypertension (principal); E78.5 Hyperlipidemia, unspecified; Z80.42 Family history of malignant neoplasm of prostate; E55.9 Vitamin D deficiency, unspecified; Z87.39 Personal history of other diseases of the musculoskeletal system and connective tissue; Z12.5 Encounter for screening for malignant neoplasm of prostate
CPT/HCPCS: 36415; 80048; 80061; 82306; 84153; 84450; 84460; 84550

== ENCOUNTER 2023-11-18 08:55 | Outpatient (AMB) | payer OTHER, SELFPAY ==
[2023-11-18 08:59] VITALS: BP 138/92; PULSE 90; O2SAT 97; BMI 26.9
--- NOTE | 2023-11-18 08:59 | MHC.PC.OV ---
Vital Signs 11/18/23 08:59 Height 5 ft 11 in Weight 193 lb BMI 26.9 BP 138/92 H Blood Pressure Location Rt brachial Position Sitting Pulse 90 Pulse Source Pulse Oximeter Pulse Oximetry (%) 97 Oxygen Delivery Method Room Air Intake Visit Reasons: PE Intake Note: Pt is here today for his PE: Last colonoscopy 03/10/22 Allergies No Known Allergies Allergy (Verified 11/18/23 09:32) Medication List - Last Reconciled 11/18/23 by Harriet Flanagan MD allopurinol 100 mg PO DAILY atorvastatin 10 mg PO DAILY cholecalciferol (vitamin D3) 125 mcg PO DAILY qegtxqfl-qkddh-yip 2-C-D3-mauri 750-30-1,000-1 be-hn-bgrh-mg (Pyadcitrohm-Ddnslfythtw-NCP + vitD) 1 tab PO DAILY indomethacin 25 mg PO BID PRN lisinopril 20 mg PO DAILY magnesium 250 mg PO DAILY psyllium husk (Metamucil) 1 tbsp PO DAILY Tobacco use date assessed: 11/18/23 Dental Screening Dental Screen Date: 11/18/23 Did you have a dental visit in the last 12 months?: Yes Did you have a dental problem in the last 6 months where you did not have access to dental care?: No Was dental information given to patient?: Patient has dentist HPI PE HPI Details 63-year-old male here today for physical exam. He is up-to-date with his screening colonoscopy, done by Dr. Quispe with removal of a tubular adenoma polyp. Had recent fasting labs done with lipids within normal limits, currently on atorvastatin 10 mg daily. Has history of gout, with no acute attacks in the past year, currently on allopurinol and has indomethacin to take as needed. He takes lisinopril 20 mg daily for blood pressure control. Has history of basal cell cancer currently followed by [facility] every 6 months [facility] Medical History (Updated 11/21/23 @ 02:38 by Harriet Flanagan MD) Elevated liver enzymes History of adenomatous polyp of colon History of basal cell cancer History of gout Vitamin D deficiency Family history of prostate cancer Essential hypertension Dyslipidemia Chronic left hip pain Surgical History History of colonoscopy Family History Father No problems noted. Mother HTN (hypertension) Brain aneurysm Brother Medical history non-contributory Brother No problems noted. Sister No problems noted. Son No problems noted. Maternal Uncle Prostate cancer Social History Housing: House Alcohol intake: current Patient Tobacco Use Status: Never used Tobacco e-Cigarette/Vaping Use: Never Used service: No Current occupational status: employed Cognitive needs: No Hearing needs: No Vision needs: No Questionnaire PHQ-9 Over the last 2 weeks, how often have you been bothered by any of the following problems? 1. Little interest or pleasure in doing things: not at all 2. Feeling down, depressed, or hopeless: not at all 3. Trouble falling or staying asleep, or sleeping too much: not at all 4. Feeling tired or having little energy: not at all 5. Poor appetite or overeating: not at all 6. Feeling bad about yourself - or that you are a failure or have let yourself or your family down: not at all 7. Trouble concentrating on things, such as reading the newspaper or watching television: not at all 8. Moving or speaking so slowly that other people could have noticed. Or the opposite - being so fidgety or restless that you have been moving around a lot more than usual: not at all 9. Thoughts that you would be better off or of hurting yourself in some way: not at all Total score: 0 Depression Screening Interpretation: Negative Depression Screening Done: Yes 08186 - PHQ-9 Billing: Yes Source: Developed by Drs. Doug Mendoza, Mandi Jones, Reynaldo Ventura and colleagues, with an educational franci from [employer]. Thrive Questionnaire Date Thrive assessed: 11/18/23 I am a: Patient What is your living situation today?: I have a steady place to live Within the past 12 months, did the food you bought not last and you didn't have the money to get more?: I choose not to answer this question Within the past 12 months, did you worry whether your food would run out before you got money to buy more?: I choose not to answer this question Do you have trouble paying for medicines?: No Do you have trouble getting transportation to medical appointments?: No Do you have trouble paying your heating and electricity bill?: No Do you have trouble taking care of your child, family member or friend?: No Do you have trouble with day-to-day activities such as bathing, preparing meals, shopping, managing finances, etc.?: No Are you currently unemployed and looking for a job?: No Are you interested in more education?: No Please select the resources that you would like help with: Housing/Halfway Currently or been in a relationship where the following occur: I choose not to answer THRIVE Score: 0 AUDIT C Alcohol Use Questionnaire (AUDIT-C) 1. How often do you have a drink containing alcohol?: 4 or more times a week 2. How many drinks containing alcohol do you have on a typical day when you are drinking?: 3 or 4 3. How often do you have six or more drinks on one occasion?: Monthly Total Score: 7 Score Reviewed/Action Taken: Yes (Patient advised to cut back or abstain from alcohol intake) JEFF-7 AMB Questionnaire JEFF-7 Date JEFF - 7 assessed: 11/18/23 Feeling nervous, anxious, or on edge: 0 = Not at all Not being able to stop or control worryin = Not at all Worrying too much about different things: 0 = Not at all Trouble relaxin = Not at all Being so restless that it is hard to sit still: 0 = Not at all Becoming easily annoyed or irritable: 0 = Not at all Feeling afraid as if something awful might happen: 0 = Not at all Total JEFF-7 score (0-4 normal; 5-9 mild; 10-14 moderate; 15-21 severe): 0 Source: Developed by Drs. Doug Mendoza, Mandi Jones, Reynaldo Ventura and colleagues, with an educational franci from [employer]. JEFF-7 Assessment Billing JEFF-7 Assessment Tool: JEFF-7 Assessment 67439 Review of Systems Const All systems reviewed & are unremarkable except as noted in HPI and below Denies chills, Denies fatigue and Denies fever(s) Eyes Reports no additional complaints and Denies itchy eyes ENT Denies otalgia, Denies facial pain, Reports hoarseness, Denies lip swelling, Denies sore throat, Denies throat swelling and Denies tongue swelling Card Reports no additional complaints Resp Reports cough (with phlegm in the morning only) and Denies hemoptysis GI Reports no additional complaints Reports no additional complaints Musc Reports no additional complaints Skin/Breast Details: Sees [facility] for follow-up every 6 month Reports system reviewed and no additional complaints, except as documented Neuro Denies Abnormal speech present Psych Reports no additional complaints Endo Denies fatigue Barney/Lymph Reports no additional complaints Aller/Immun Denies itchy eyes, Denies lip swelling, Denies throat swelling and Denies tongue swelling Physical exam (Primary Care) Vital Signs: Last Vital Signs Pulse 90 11/18/23 08:59 BP 138/92 H 11/18/23 08:59 Pulse Ox 97 11/18/23 08:59 Oxygen Delivery Method Room Air 11/18/23 08:59 BMI result Body Mass Index 26.9 BMI Assessment/Plan discussion: High BMI High, discussed plan: lifestyle, weight reduction, dietary and physical activity Tobacco/Smoking Status: Tobacco use Status Tobacco use date assessed 11/18/23 11/18/23 09:17 Patient Tobacco Use Status Never used Tobacco 11/18/23 09:03 e-Cigarette/Vaping Use Never Used 11/18/23 09:03 PHQ-9: PHQ-9 Score PHQ-9: Total score 0 11/21/23 01:18 Depression Screening Interpretation: Negative Thrive Assessment: Date of Thrive Assessment Date Thrive assessed 11/18/23 11/18/23 09:17 Currently or been in a relationship where the following occur: I choose not to answer Advance Care Planning discussion: Completed/Scanned Date of discussion: 11/18/23 Who was present: Patient Forms completed: Health Care Proxy Time spent: 16-45 minutes Actual minutes spent: 16 Const General: comfortable, no acute distress and alert Nutritional Appearance: overweight Orientation/consciousness: patient oriented x3 HENMT Mouth: Normal oral and palatal mucosa present and moist mucous membranes Eyes General: appearance normal, both eyes and all related structures Neck Neck: Yes full ROM, Yes no lymphadenopathy and Yes supple Thyroid: Thyroid normal Chest Chest palpation & inspection: normal inspection of the chest Resp Auscultation: clear to auscultation bilaterally Cardio Rate: regular rate Rhythm: regular rhythm Heart sounds: S1 normal heart sound present and S2 normal heart sound present GI Palpation (GI): Soft to palpation, nontender, no guarding and no masses Auscultation: normal bowel sounds Male General Exam: Yes normal external exam Back/Spine/Pelvis Back: No back tenderness Skin General skin exam: no rashes or lesions noted Neuro General: patient oriented x3, gait normal, tone normal, moves all extremities, Normal light touch and pain sensation, no focal motor deficits and CN's II-XI intact bilaterally Speech: No Abnormal speech present Extrem General: Yes full ROM, Yes no joint enlargement, Yes no pedal edema and Yes normal gait Psych Appearance: grossly normal and well kempt Mental Status: mental status grossly normal Speech and movement: Normal speech and movement present Affect: normal affect Attitude: cooperative Thought process: Normal thought process present Results Reviewed Results Reviewed: Name: Hollis Lester Age/Sex: 63/M : 1960 Unit#: [id number] Attend Dr: Harriet Flanagan MD Re11/10/23 Status: DEP REF Location: [facility] Disch: SPEC : [id number] RAMIRO: 11/10/23-1146 STATUS: COMP REQ : [id number] RECD: 11/10/23-[address]: Harriet Flanagan MD COMP: 11/10/23-1403 ENTERED: 11/10/23-[address] [facility] [address]: ORDERED: Met Prof Fast, Uric, AST, ALT, Lipid Panel, Vitamin D 25-OH Test Result Flag Reference Sodium 141 135-145 mmol/L Potassium 4.3 3.3-5.1 mmol/L CL 106 96-108 mmol/L CO2 24 22-29 mmol/L Gap 15 12-20 BUN 14 9-16 mg/dL Creat 0.88 0.5-1.4 mg/dL EGFR > 60 NOTE: For -[place] individuals, multiply the result by 1.210. Chronic Kidney Disease: Estimated GFR < 60 mL/min/1.73m2 Severe Kidney Disease: Estimated GFR < 15 mL/min/1.73m2 FBS 113 H 60-99 mg/dL A fasting glucose from 100-125 mg/dl is considered impaired (pre-diabetes). Uric Acid 5.3 3.4-7.0 mg/dL CA 9.8 8.4-10.2 mg/dL AST (GOT) 38 H 5-37 U/L ALT (GPT) 45 H 0-40 U/L Triglyceride 77 <150 mg/dL Desirable Triglyceride: less than 150 mg/dL Borderline High Triglyceride 150-199 mg/dL High Triglyceride: 200-499 mg/dL Very High Triglyceride: greater than or equal to 5OO mg/dL Cholesterol 184 <200 mg/dL Desirable Cholesterol: less than 200 mg/dL Borderline High Cholesterol: 200-239 mg/dL High Cholesterol: greater than 239 mg/dL LDL Calculated 105 H <100 mg/dL Desirable LDL: less than 100 mg/dL Near Optimal/Above Optimal LDL: 110-129 mg/dL Borderline High LDL: 130-159 mg/dL High LDL: 160-189 mg/dL Very High LDL: greater than or equal to 190 mg/dL HDL 64 >40 mg/dL Desirable HDL: greater than 40 mg/dL Note: This HDL assay may give artificially low results in patients with liver disease. Vit D 25-OH Tot 54.0 >30 ng/mL Health Based Reference Values* < 20 ng/mL Deficient 20-30 ng/mL Insufficient > 30 ng/mL Sufficient Assessment and Plan Assessment & Plan (1) Dyslipidemia: Code(s): E78.5 - Hyperlipidemia, unspecified Plan: Reviewed recent fasting lipid profile with patient with levels within normal limits . Continue atorvastatin 10 mg daily , in addition to adherence to low-cholesterol diet and regular exercise, at least 30 minutes 3 to 4 times a week. Advised patient to make healthy food choices, eat more fruits, vegetables, whole grains, wild caught fish and low-fat dairy. Limit amount of meat and fried or fatty food products, as well as processed foods and fast foods. (2) Essential hypertension: Code(s): I10 - Essential (primary) hypertension Plan: Continue lisinopril 20 mg daily (3) Annual visit for general adult medical examination with abnormal findings: Code(s): Z00.01 - Encounter for general adult medical examination with abnormal findings Plan: Latest fasting lab results reviewed with patient. Recommended dental visit every 6 months and regular eye exams, at least every 2 years. Take adequate calcium in diet and vitamin-D 3 at 2000 IU per cap once a day, in addition to weight-bearing exercises to help maintain good muscle tone and weight control. Instructed to do self testicular exam check for any mass. Sees Dermatology every 6 months for skin check due to history of basal cell CA. Up-to-date with his screening colonoscopy. Has had COVID vaccinations in the past, reminded to get booster, up-to-date with flu shot and Tdap. Advised to get vaccinated against herpes zoster. (4) Elevated liver enzymes: Code(s): R74.8 - Abnormal levels of other serum enzymes Plan: Advised to abstain from alcohol intake. Will monitor liver enzymes on next visit Medications: Refilled atorvastatin 10 mg PO DAILY 90 tabs 3RF lisinopril 20 mg PO DAILY 90 tabs 3RF Coding Level of Care Code Est Pt Prev Care 40-64y(79498) Diagnoses Dyslipidemia E78.5 Essential hypertension I10 Annual visit for general adult medical examination with abnormal findings Z00.01 Elevated liver enzymes R74.8 Additional Codes JEFF-7 Assessment Billing - JEFF-7 Assessment Tool: JEFF-7 Assessment 77101 ([id number]) Vital Signs *Quality* - Advance Care Planning discussion: Completed/Scanned ([id number]) Vital Signs *Quality* - Time spent: 16-45 minutes ([id number])
== END 2023-11-18 11:10 | disposition home or self-care (01) ==
PROVIDERS: PCP Internal Medicine; Visit Provider Internal Medicine
DX: Z00.00 Encounter for general adult medical examination without abnormal findings (principal); E78.5 Hyperlipidemia, unspecified; I10 Essential (primary) hypertension; R74.8 Abnormal levels of other serum enzymes
CPT/HCPCS: 1123F; 99396; 99497

== ENCOUNTER 2024-12-01 15:09 | Outpatient (REF) | payer OTHER, SELFPAY ==
--- OUTSIDE RECORDS SUMMARY | 2024-12-01 15:11 | XMS_ITS | Clinical Summary ---
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 Active atorvastatin calcium (ATORVASTATIN ORAL) Take by mouth. Active Immunizations Immunization Administration Dates Next Due Tdap 11/16/2019 Social History Tobacco Use Types Packs/Day Years Used Date Smoking Tobacco: Never Smokeless Tobacco: Never Alcohol Use Standard Drinks/Week Comments Yes 0 (1 standard drink = 0.6 oz pure alcohol) not every day, more than 10 per week Education Answer Date Recorded Are you interested in more education? Not on dora e 08/14/2022 Are you concerned about learning? Not on file 08/14/2022 No 08/14/2022 No 08/14/2022 Digital Access Answer Date Recorded No 09/15/2022 No 09/15/2022 Reliable internet access at home? Not on file 09/15/2022 Device with a working camera? Not on file Sex and Gender Information Value Date Recorded Sex Assigned at Male 11/16/2019 7:05 PM EDT Legal Sex Male 6:57 PM EDT Gender Identity Male 11/16/2019 7:05 PM EDT Sexual Orientation Straight 11/16/2019 7: 05 PM EDT Last Filed Vital Signs Vital Sign Reading Time Taken Comments Blood Pressure 173/95 11/16/2019 7:01 PM EDT Pulse 67 11/16/2019 7:01 PM EDT Temperature 36.2 C (97.2 F) 11/16/2019 7:01 PM EDT Respiratory Rate 18 11/16/2019 7:01 PM EDT Oxygen Saturation 97% 11/16/2019 7:01 PM EDT Inhaled Oxygen Concentration - - Weight 90.7 kg (200 lb) 11/16/2019 7:01 PM EDT Height 180.3 cm (5' 11 ) 11/16/2019 7:01 PM EDT Body Mass Index 27.89 11/16/2019 7:01 PM EDT Plan of Treatment Not on file Medical Devices Not on file Insurance Member Subscriber Plan / Payer (Ef fective 2019-Present) Name:Hollis Lester Relation to Subscriber:Self Name:Hollis Lester Payer ID:Not on file Type:HMO Address: [place] [id number] [facility] Member Subscriber Plan / Payer (Ef fective 2019-Present) Name:TaylerHollis Relation to Subscriber:Self Name:TaylerHollis Payer ID:Not on file Type:HMO Address: [place] [id number] Care Teams Pump Servicer Helper Relationship Specialty Start Date End Date Harriet Flanagan MD 1959 [address] [place] [id number] PCP - General Internal Medicine 11/16/19 Additional Source Comments The information contained in this document represents components of the legal health record. It is not the complete legal health record.[facility]
[2024-12-01 16:58] LABS: Alanine Aminotransferase 42 U/L (0-40); Anion Gap 14 (12-20); Aspartate Amino Transferase 38 U/L (5-37); Blood Urea Nitrogen 15 mg/dL (9-16); Calcium 9.4 mg/dL (8.4-10.2); Carbon Dioxide 25 mmol/L (22-29); Chloride 107 mmol/L (96-108); Cholesterol 212 mg/dL (<200); Estimated Glomerular Filt Rate > 60; HDL Cholesterol 56 mg/dL (>40); Potassium 3.6 mmol/L (3.3-5.1); Sodium 142 mmol/L (135-145); Triglycerides 108 mg/dL (<150); Uric Acid 6.4 mg/dL (3.4-7.0)
[2024-12-01 17:15] LABS: PSA,Total (Free>4and<10) 3.12 ng/mL (0.00-4.00)
== END 2024-12-01 15:10 | disposition home or self-care (01) ==
LOC: HO.HMGCLDS 15:09
PROVIDERS: PCP Internal Medicine; Visit Provider Internal Medicine
DX: I10 Essential (primary) hypertension (principal); R74.8 Abnormal levels of other serum enzymes; E78.5 Hyperlipidemia, unspecified; Z87.39 Personal history of other diseases of the musculoskeletal system and connective tissue; Z80.42 Family history of malignant neoplasm of prostate; Z12.5 Encounter for screening for malignant neoplasm of prostate
CPT/HCPCS: 36415; 80048; 80061; 84153; 84450; 84460; 84550

== ENCOUNTER 2024-12-14 08:33 | Outpatient (AMB) | payer OTHER, SELFPAY ==
--- NOTE | 2024-12-14 08:36 | A.OFFPC_ITS ---
Vital Signs 12/14/24 08:37 Height 5 ft 11 in Weight 196 lb BMI 27.3 BP 144/84 H Blood Pressure Location Rt brachial Position Sitting Respiration 16 Pulse 70 Pulse Source Pulse Oximeter Temp 98.3 F Temp Source Oral Pulse Oximetry (%) 96 Oxygen Delivery Method Room Air Intake Visit Reasons: annual exam Intake Note: Pt is here today for his PE: Last colonoscopy 03/10/22 Allergies No Known Allergies Allergy (Verified 12/14/24 08:52) Medication List - Last Reconciled 12/14/24 by Harriet Flanagan MD allopurinol 100 mg PO DAILY atorvastatin 10 mg PO DAILY cholecalciferol (vitamin D3) 1,000 mcg PO DAILY yzvgvxug-xvaz-dvq1-[id number]-mauri-bosw 750 mg-644 mg- 30 mg-1 mg (Osteo Bi-Flex Triple Strength) 1 tab PO BID indomethacin 25 mg PO BID PRN lisinopril 20 mg PO DAILY magnesium 250 mg PO DAILY psyllium husk (Metamucil) 1 tbsp PO DAILY Tobacco use date assessed: 12/14/24 Dental Screening Dental Screen Date: 12/14/24 Did you have a dental visit in the last 12 months?: Yes Did you have a dental problem in the last 6 months where you did not have access to dental care?: No Was dental information given to patient?: Patient has dentist HPI annual exam HPI Details - The patient is a 64-year-old male with history of hypertension, hyperlipidemia , gout, osteoarthritis and benign prostatic hyperplasia, here today for his physical exam - Essential Hypertension: The patient re ports elevated blood pressure readings despite adherence to medication, with a recent measurement of 145/85 mmHg. He attributes some of the elevation to stress related to work and family. No complaints of chest pain, headache, lightheadedness or of breath reported. - Hyperlipidemia: The patient's choleste rol levels have increased by 20-25 points, attributed to dietary habits including increased intake of barbecue and ice cream during the summertime. He is currently on atorvastatin. - The patient's prostate-specific antige n (PSA) level increased from 2.2 to 3.12 over the past year. He reports nocturia, waking up a couple of times at night to urinate. - Gout: The patient has a history of gou t and is currently taking allopurinol. He reports no recent gout attacks. - Osteoarthritis: The patient experience s joint pain, particularly in the knee and hip, and has been using glucosamine supplements. He has been prescribed meloxicam for pain management. - Right Eye Irritation: The patient repo rts intermittent irritation in the right eye, feeling as if something is in it. He has not visited an eye doctor recently. - Vitamin D Deficiency: The patient is o n vitamin D supplementation, with levels reported as normal. - Constipation: The patient uses Metamuc il daily for fiber intake and reports no issues with bowel movements. -last colonoscopy was in [address] Eric Quispe with removal of a tubular adenoma polyp. Repeat due again in 3-4 years [facility] Medical History History of gout Elevated liver enzymes History of adenomatous polyp of colon History of basal cell cancer Vitamin D deficiency Family history of prostate cancer Essential hypertension Dyslipidemia Chronic left hip pain Surgical History History of colonoscopy Family History Father No problems noted. Mother HTN (hypertension) Brain aneurysm Brother Medical history non-contributory Brother No problems noted. Sister No problems noted. Son No problems noted. Maternal Uncle Prostate cancer Social History Housing: House Alcohol intake: current Patient Tobacco Use Status: Never used Tobacco e-Cigarette/Vaping Use: Never Used service: No Current occupational status: employed Cognitive needs: No Hearing needs: No Vision needs: No Questionnaire PHQ-9 Over the last 2 weeks, how often have you been bothered by any of the following problems? 1. Little interest or pleasure in doing things: not at all 2. Feeling down, depressed, or hopeless: not at all 3. Trouble falling or staying asleep, or sleeping too much: not at all 4. Feeling tired or having little energy: not at all 5. Poor appetite or overeating: not at all 6. Feeling bad about yourself - or that you are a failure or have let yourself or your family down: not at all 7. Trouble concentrating on things, such as reading the newspaper or watching television: not at all 8. Moving or speaking so slowly that other people could have noticed. Or the opposite - being so fidgety or restless that you have been moving around a lot more than usual: not at all 9. Thoughts that you would be better off or of hurting yourself in some way: not at all Total score: 0 Depression Screening Interpretation: Negative Depression Screening Done: Yes 56580 - PHQ-9 Billing: Yes Source: Developed by Drs. Doug Mendoza, Mandi Jones, Reynaldo Ventura and colleagues, with an educational franci from [employer]. Thrive Questionnaire Date Thrive assessed: 12/13/24 I am a: Patient What is your living situation today?: I have a steady place to live Within the past 12 months, did the food you bought not last and you didn't have the money to get more?: Never true Within the past 12 months, did you worry whether your food would run out before you got money to buy more?: Never true Do you have trouble paying for medicines?: No Do you have trouble getting transportation to medical appointments?: No Do you have trouble paying your heating and electricity bill?: No Do you have trouble taking care of your child, family member or friend?: No Do you have trouble with day-to-day activities such as bathing, preparing meals, shopping, managing finances, etc.?: No Are you currently unemployed and looking for a job?: Yes Are you interested in more education?: No Please select the resources that you would like help with: Utilities Currently or been in a relationship where the following occur: No concerns reported THRIVE Score: 0 AUDIT C Alcohol Use Questionnaire (AUDIT-C) 1. How often do you have a drink containing alcohol?: 4 or more times a week 2. How many drinks containing alcohol do you have on a typical day when you are drinking?: 3 or 4 3. How often do you have six or more drinks on one occasion?: Weekly Total Score: 8 JEFF-7 AMB Questionnaire JEFF-7 Date JEFF - 7 assessed: 11/18/23 Feeling nervous, anxious, or on edge: 0 = Not at all Not being able to stop or control worryin = Not at all Worrying too much about different things: 0 = Not at all Trouble relaxin = Not at all Being so restless that it is hard to sit still: 0 = Not at all Becoming easily annoyed or irritable: 0 = Not at all Feeling afraid as if something awful might happen: 0 = Not at all Total JEFF-7 score (0-4 normal; 5-9 mild; 10-14 moderate; 15-21 severe): 0 Source: Developed by Drs. Doug Mendoza, Mandi Jones, Reynaldo Ventura and colleagues, with an educational franci from [employer]. Review of Systems Const Denies chills and Denies fever(s) Eyes Reports as per HPI ENT Denies otalgia, Denies facial pain, Reports hoarseness, Denies sore throat, Denies throat swelling and Denies tongue swelling Card Reports no additional complaints, Denies dyspnea and Denies dyspnea on exertion Resp Denies cough, Denies dyspnea and Denies dyspnea on exertion GI Reports no additional complaints and Reports heartburn (Occasional takes Rolaids or Tums as needed) Reports no additional complaints Musc Reports arthralgias (Multiple joints) and Reports stiffness Skin/Breast Details: Sees [facility] for follow-up every 6 month Reports system reviewed and no additional complaints, except as documented Neuro Reports no additional complaints and Denies Abnormal speech present Psych Reports no additional complaints Endo Reports no additional complaints Barney/Lymph Reports no additional complaints Aller/Immun Reports seasonal rhinorrhea, Denies throat swelling and Denies tongue swelling Physical exam (Primary Care) Vital Signs: Last Vital Signs Temp 98.3 F 12/14/24 08:37 Pulse 70 12/14/24 08:37 Resp 16 12/14/24 08:37 BP 144/84 H 12/14/24 08:37 Pulse Ox 96 12/14/24 08:37 Oxygen Delivery Method Room Air 12/14/24 08:37 BMI result Body Mass Index 27.3 BMI Assessment/Plan discussion: High BMI High, discussed plan: lifestyle, weight reduction, dietary and physical activity Tobacco/Smoking Status: Tobacco use Status Tobacco use date assessed 12/14/24 12/14/24 08:43 Patient Tobacco Use Status Never used Tobacco 12/14/24 08:43 e-Cigarette/Vaping Use Never Used 12/14/24 08:43 PHQ-9: PHQ-9 Score PHQ-9: Total score 0 12/14/24 09:24 Depression Screening Interpretation: Negative Thrive Assessment: Date of Thrive Assessment Date Thrive assessed 12/13/24 12/14/24 08:43 Currently or been in a relationship where the following occur: No concerns reported Advance Care Planning discussion: Completed/Scanned Date of discussion: 12/14/24 Who was present: Patient Forms completed: Health Care Proxy Time spent: 16-45 minutes Actual minutes spent: 16 Const General: comfortable, no acute distress and alert Nutritional Appearance: overweight Orientation/consciousness: patient oriented x3 HENMT Mouth: Normal oral and palatal mucosa present and moist mucous membranes Eyes Other: Slight conjunctival injection OD Neck Neck: Yes full ROM, Yes no lymphadenopathy and Yes supple Thyroid: Thyroid normal Chest Chest palpation & inspection: normal inspection of the chest Resp Auscultation: clear to auscultation bilaterally Cardio Rate: regular rate Rhythm: regular rhythm Heart sounds: S1 normal heart sound present and S2 normal heart sound present GI Palpation (GI): Soft to palpation, nontender, no guarding and no masses Auscultation: normal bowel sounds Male General Exam: Yes normal external exam Back/Spine/Pelvis Back: No back tenderness Skin General skin exam: no rashes or lesions noted Neuro General: patient oriented x3, gait normal, tone normal, moves all extremities, Normal light touch and pain sensation, no focal motor deficits and CN's II-XI intact bilaterally Speech: No Abnormal speech present Extrem General: Yes full ROM, Yes no joint enlargement, Yes no pedal edema and Yes normal gait Psych Appearance: grossly normal and well kempt Mental Status: mental status grossly normal Speech and movement: Normal speech and movement present Affect: normal affect Results Reviewed Results Reviewed: Name: Hollis Lester Age/Sex: 64/M : 1960 Unit#: [id number] Attend Dr: Harriet Flanagan MD Re12/01/24 Status: DEP [facility] Disch: SPEC : [id number] RAMIRO: 12/01/24 STATUS: COMP REQ : [id number] RECD: 12/01/[address]: Harriet Flanagan MD COMP: 12/01/24 ENTERED: 12/01/24-[address] [facility] [address]: ORDERED: Met Prof Fast, Uric, AST, ALT, Lipid Panel Test Result Flag Reference Sodium 142 135-145 mmol/L Potassium 3.6 3.3-5.1 mmol/L CL 107 96-108 mmol/L CO2 25 22-29 mmol/L Gap 14 12-20 BUN 15 9-16 mg/dL Creat 0.77 0.5-1.4 mg/dL eGFR > 60 Chronic Kidney Disease: Estimated GFR < 60 mL/min/1.73m2 Severe Kidney Disease: Estimated GFR < 15 mL/min/1.73m2 FBS 95 60-99 mg/dL Uric Acid 6.4 3.4-7.0 mg/dL CA 9.4 8.4-10.2 mg/dL AST (GOT) 38 H 5-37 U/L ALT (GPT) 42 H 0-40 U/L Triglyceride 108 <150 mg/dL Desirable Triglyceride: less than 150 mg/dL Borderline High Triglyceride 150-199 mg/dL High Triglyceride: 200-499 mg/dL Very High Triglyceride: greater than or equal to 5OO mg/dL Cholesterol 212 H <200 mg/dL Desirable Cholesterol: less than 200 mg/dL Borderline High Cholesterol: 200-239 mg/dL High Cholesterol: greater than 239 mg/dL LDL Calculated 135 H <100 mg/dL Desirable LDL: less than 100 mg/dL Near Optimal/Above Optimal LDL: 110-129 mg/dL Borderline High LDL: 130-159 mg/dL High LDL: 160-189 mg/dL Very High LDL: greater than or equal to 190 mg/dL HDL 56 >40 mg/dL Desirable HDL: greater than 40 mg/dL Note: This HDL assay may give artificially low results in patients with liver disease. Coding Level of Care Code Est Pt Prev Care 40-64y(07101) Diagnoses Annual visit for general adult medical examination with abnormal findings Z00.01 Corneal irritation of right eye H18.891 Essential hypertension I10 Dyslipidemia E78.5 Elevated liver enzymes R74.8 History of gout Z87.39 Advance directive discussed with patient Z71.89 Additional Codes PHQ-9 - 89854 - PHQ-9 Billing: Yes ([id number]) Vital Signs *Quality* - Advance Care Planning discussion: Completed/Scanned ([id number]) Vital Signs *Quality* - Time spent: 16-45 minutes ([id number]) Assessment & Plan Assessment & Plan (1) Annual visit for general adult medical examination with abnormal findings: Code(s): Z00.01 - Encounter for general adult medical examination with abnormal findings (2) Corneal irritation of right eye: Code(s): H18.891 - Other specified disorders of cornea, right eye Category: Medical Plan: Referral to ophthalmology for further evaluation (3) Essential hypertension: Code(s): I10 - Essential (primary) hypertension Category: Medical (4) Dyslipidemia: Code(s): E78.5 - Hyperlipidemia, unspecified Category: Medical (5) Elevated liver enzymes: Code(s): R74.8 - Abnormal levels of other serum enzymes Category: Medical (6) History of gout: Code(s): Z87.39 - Personal history of other diseases of the musculoskeletal system and connective tissue Category: Medical (7) Advance directive discussed with patient: Code(s): Z71.89 - Other specified counseling Plan: Initiated the conversation about Advanced Directives. Advanced Directives help patients prepare for current and future decisions about their medical treatment and place of care. Discussed with patient that it is a process where a patients current condition and prognosis are reviewed, their wishes for information regarding their illness are elicited, and likely medical dilemmas are presented and options discussed. Healthcare proxy form completed today The form can be amended as needed, reviewed yearly and make changes as needed Plan Patient was informed and verbally consented to the use of an ambient scribe for clinic note documentation during this visit. 1. Essential (primary) hypertension I10 The patient will continue with lisinopril and an additional medication, amlodipine, will be introduced at night to better control blood pressure. A follow-up blood pressure check is scheduled in two weeks to assess the effectiveness of the medication adjustment. 2. Hyperlipidemia, unspecified E78.5 The patient is advised to continue atorvastatin and make dietary modifications to reduce cholesterol levels, including decreasing intake of high-fat foods and increasing consumption of healthier options like salmon and vegetables. 3. Gout, unspecified M10.9 The patient will continue taking allopurinol and is advised to avoid triggers for gout attacks. Meloxicam is prescribed for joint pain management, with instructions to avoid concurrent use with indomethacin. 4. Unspecified osteoarthritis, unspecified site M19.90 Meloxicam is prescribed for osteoarthritis pain management, and the patient is advised to monitor for any gastrointestinal side effects. Alternative therapies such as turmeric were discussed, with caution advised regarding liver health. 5. Other specified disorders of eye and adnexa H57.89 The patient is referred to an eye director of career resources for further evaluation of persistent right eye irritation. No foreign body was detected during the examination. 6. Constipation, unspecified K59.00 The patient is advised to continue using Metamucil for fiber intake to manage constipation. Orders: Referrals Ophthalmology Referral H18.891 - Other specified disorders of cornea, right eye Medications: New celecoxib (Celebrex) 200 mg PO BID PRN 30 caps 1RF joint pain amlodipine 5 mg PO QPM 30 tabs 1RF
[2024-12-14 08:37] VITALS: BP 144/84; PULSE 70; RESP 16; TEMP 36.8; O2SAT 96; BMI 27.3
--- OUTSIDE RECORDS SUMMARY | 2024-12-14 09:11 | XMS_ITS | Clinical Summary ---
Author Organization [facility] Address [address] [place] [phone] Phone Care Team Providers Care Manager Mass Name Role Phone Harriet Flanagan MD Primary [...] Lester Payer ID:Not on file Type:HMO Address: [place] [id number] [facility] Member Subscriber Plan / Payer (Ef fective 2019-Present) Name:TaylerHollis Relation to Subscriber:Self Name:TaylerHollis Payer ID:Not on file Type:HMO Address: [place] [id number] Care Teams Manager Mass Relationship Specialty Start Date End Date Harriet Flanagan MD [address] [place] [address] PCP - General Internal Medicine 11/16/19 Additional Source Comments The information contained in this document represents components of the legal health record. It is not the complete legal health record.[facility]
== END 2024-12-14 09:21 | disposition home or self-care (01) ==
LOC: HO.HMCC 08:34
PROVIDERS: PCP Internal Medicine; Visit Provider Internal Medicine
DX: Z00.01 Encounter for general adult medical examination with abnormal findings (principal); H18.891 Other specified disorders of cornea, right eye; I10 Essential (primary) hypertension; E78.5 Hyperlipidemia, unspecified; R74.8 Abnormal levels of other serum enzymes; Z87.39 Personal history of other diseases of the musculoskeletal system and connective tissue; Z71.89 Other specified counseling

== ENCOUNTER → 2024-12-14 08:33 | Outpatient (BNVA) | payer OTHER, SELFPAY | PROVIDERS: PCP Internal Medicine; Visit Provider Internal Medicine | DX: Z00.01 Encounter for general adult medical examination with abnormal findings (principal); I10 Essential (primary) hypertension; E78.5 Hyperlipidemia, unspecified; R97.20 Elevated prostate specific antigen [PSA]; R35.1 Nocturia; K59.00 Constipation, unspecified; H18.891 Other specified disorders of cornea, right eye; R74.8 Abnormal levels of other serum enzymes; Z87.39 Personal history of other diseases of the musculoskeletal system and connective tissue; Z71.89 Other specified counseling | CPT/HCPCS: 96127 ==

== ENCOUNTER 2025-01-09 10:13 | Outpatient (REF) | payer OTHER, SELFPAY ==
--- NOTE | ~2025-01-09 | XR_ITS ---
EXAMINATION: XR FOOT, LEFT CLINICAL INFORMATION: S99.922A - Unspecified injury of left foot, initial encounter COMPARISON: None available. TECHNIQUE: AP, lateral, and oblique views of the left foot. FINDINGS: There is a fracture of the first proximal phalanx involving the diaphysis and extending to the distal articular surface. There is an oblique fracture through the proximal diaphysis and metaphysis of the second proximal phalanx. Third proximal phalanx demonstrates an oblique fracture through the diaphysis and a transverse fracture across the proximal metaphysis. Fourth proximal phalanx demonstrates a transverse fracture across the proximal metaphysis possibly extending to the proximal articular surface. There is no oblique intra-articular fracture involving the medial base of the fifth proximal phalanx with an avulsion fracture involving the lateral base. The first MTP joint demonstrates mild joint space narrowing with marginal osteophytes. There is a small calcaneal spur. XR/XR foot LT min 3V IMPRESSION: Acute fractures of the first through fifth proximal phalanges extending to the distal articular surface in the first proximal phalanx and proximal articular surface of the fifth proximal phalanx. There is possible extension into the proximal articular surface of the fourth proximal phalanx. 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 Small calcaneal spur Electronically signed by: Marcos Perea MD 01/09/2025 11:00 AM EDT
== END 2025-01-09 10:14 | disposition home or self-care (01) ==
LOC: HO.HMGCX 10:13
PROVIDERS: PCP Internal Medicine; Visit Provider Internal Medicine
DX: S92.912A Unspecified fracture of left toe(s), initial encounter for closed fracture (principal); W10.8XXA Fall (on) (from) other stairs and steps, initial encounter; Y92.009 Unspecified place in unspecified non-institutional (private) residence as the place of occurrence of the external cause
CPT/HCPCS: 73630

== ENCOUNTER 2025-01-09 10:13 | Outpatient (AMB) | payer OTHER, SELFPAY ==
--- NOTE | 2025-01-09 10:19 | AM.OFFWIN_ITS ---
Intake Vital Signs 01/09/25 10:21 Height 5 ft 11 in Weight 194 lb BMI 27.1 BP 124/72 Blood Pressure Location Rt brachial Position Sitting Pulse 94 Pulse Source Pulse Oximeter Temp 97.7 F Temp Source Oral Pulse Oximetry (%) 96 Oxygen Delivery Method Room Air Intake Visit Reasons: need x ray on left foot Intake Note: pt presents with LT foot pain, swelling and bruising 2 days ago Patient Tobacco Use Status: Never used Tobacco Allergies No Known Allergies Allergy (Verified 01/09/25 10:24) Medication List - Last Reconciled 01/09/25 by Adrián Lozano MD allopurinol 100 mg PO DAILY amlodipine 5 mg PO QPM atorvastatin 10 mg PO DAILY celecoxib (Celebrex) 200 mg PO BID PRN cholecalciferol (vitamin D3) 1,000 mcg PO DAILY tiykbyht-qbow-oey9-C-mauri-bosw 750 mg-644 mg- 30 mg-1 mg (Osteo Bi-Flex Triple Strength) 1 tab PO BID indomethacin 25 mg PO BID PRN lisinopril 20 mg PO DAILY magnesium 250 mg PO DAILY psyllium husk (Metamucil) 1 tbsp PO DAILY Do you need a note to return to daycare/school/sports/work: Yes HPI need x ray on left foot HPI Details History of Present Illness The patient is a 64-year-old male presenting with left foot pain. Left foot pain: - The issue started following an acciden blanca fall down the stairs at his residence, occurring around 3 a.m. due to confusion between doorways. - The fall occurred during the night, an d the patient landed on his buttock. - The pain is described as being located right on the top of the left foot and is associated with swelling. - Severity of pain increases with moveme nt, though the patient is able to move the foot a little bit. - Pain has persisted since Wednesday night, with noted worsening symptoms over time. - The patient attempted self-treatment w ith Advil and noted the use of Celebrex. He was advised not to mix these medications. - There is noted bruising on all toes of the left foot, and vascular sensory integrity is maintained. - The patient delayed seeking medical at [facility] in hope of self-resolution but noted increased severity prompting this visit. Social History: - The patient resides in a home with at least two doors leading from his bedroom, one of which leads to the bathroom and another to the hallway. - No work commitments currently, as the patient noted he is not working and expressed feeling bored. - The patient's brother is involved in r [employer] motorcycles and has sustained mu ltiple injuries. Problem List - Left foot pain due to fall Patient Instructions - Keep the left foot elevated and in a b oot to help reduce swelling. - Do not mix Advil and Celebrex. - Await x-ray results to determine if an orthopedic referral is necessary. 03.26 : X ray report came back Acute fractures of the first through fifth proximal phalanges extending to the distal articular surface in the first proximal phalanx and proximal articular surface of the fifth proximal phalanx. There is possible extension into the proximal articular surface of the fourth proximal phalanx. ref to Ortho placed Urgent, mean while patient is to keep the foot in Orthopedic boot and keep it elevated he is already walking with crutches keep the wt off the foot Review of Systems - General: No fever no chills - Neurological: No headaches no dizziness - Ear nose throat: No sore throat no hearing difficulty no ear pain - Cardiovascular: No syncope, no chest pain, no palpitations - Gastrointestinal: No nausea vomiting or diarrhea Physical Exam General: No acute distress HEENT: No acute findings Neck: Supple Respiratory system: Able to talk in full sentences, no audible wheeze Gastrointestinal: No pain Extremities: Bruising on all toes noted left side, vascular intact, sensory intact on the foot LAST PULLER: Alert awake oriented x3 motor intact Skin: Normal turgor Patient was informed and verbally consented to the use of an ambient scribe for clinic note documentation during this visit. [facility] Medical History History of gout Elevated liver enzymes History of adenomatous polyp of colon History of basal cell cancer Vitamin D deficiency Family history of prostate cancer Essential hypertension Dyslipidemia Chronic left hip pain Surgical History History of colonoscopy Family History Father No problems noted. Mother HTN (hypertension) Brain aneurysm Brother Medical history non-contributory Brother No problems noted. Sister No problems noted. Son No problems noted. Maternal Uncle Prostate cancer Social History Housing: House Alcohol intake: current Patient Tobacco Use Status: Never used Tobacco e-Cigarette/Vaping Use: Never Used service: No Current occupational status: employed Cognitive needs: No Hearing needs: No Vision needs: No Physical Exam Vital Signs: Last Vital Signs Temp 97.7 F 01/09/25 10:21 Pulse 94 01/09/25 10:21 BP 124/72 01/09/25 10:21 Pulse Ox 96 01/09/25 10:21 Oxygen Delivery Method Room Air 01/09/25 10:21 BMI result Body Mass Index 27.1 Assessment & Plan Assessment & Plan (1) Closed fracture multiple phalanges, toe: Code(s): S92.919A - Unspecified fracture of unspecified toe(s), initial encounter for closed fracture Qualifiers: Encounter type: initial encounter Laterality: left Qualified Code(s): S92.912A - Unspecified fracture of left toe(s), initial encounter for closed fracture (2) Injury of foot, left: Code(s): S99.922A - Unspecified injury of left foot, initial encounter Qualifiers: Encounter type: initial encounter Qualified Code(s): S99.922A - Unspecified injury of left foot, initial encounter Plan History of Present Illness The patient is a 64-year-old male presenting with left foot pain. Left foot pain: - The issue started following an accidental fall down the stairs at his residence, occurring around 3 a.m. due to confusion between doorways. - The fall occurred during the night, and the patient landed on his buttock. - The pain is described as being located right on the top of the left foot and is associated with swelling. - Severity of pain increases with movement, though the patient is able to move the foot a little bit. - Pain has persisted since Wednesday, with noted worsening symptoms over time. - The patient attempted self-treatment with Advil and noted the use of Celebrex. He was advised not to mix these medications. - There is noted bruising on all toes of the left foot, and vascular sensory integrity is maintained. - The patient delayed seeking medical attention in hope of self-resolution but noted increased severity prompting this visit. Social History: - The patient resides in a home with at least two doors leading from his bedroom, one of which leads to the bathroom and another to the hallway. - No work commitments currently, as the patient noted he is not working and expressed feeling bored. - The patient's brother is involved in racing motorcycles and has sustained multiple injuries. Problem List - Left foot pain due to fall Patient Instructions - Keep the left foot elevated and in a boot to help reduce swelling. - Do not mix Advil and Celebrex. - Await x-ray results to determine if an orthopedic referral is necessary. 08 : X ray report came back Acute fractures of the first through fifth proximal phalanges extending to the distal articular surface in the first proximal phalanx and proximal articular surface of the fifth proximal phalanx. There is possible extension into the proximal articular surface of the fourth proximal phalanx. ref to Ortho placed Urgent, mean while patient is to keep the foot in Orthopedic boot and keep it elevated he is already walking with crutches keep the wt off the foot Orders: Referrals Orthopedics Referral S92.919A - Unspecified fracture of unspecified toe(s), i nitial encounter for closed fracture Coding Level of Care Code Est Pt Level 5 (56722) Diagnoses Closed fracture of multiple phalanges of toe of left foot, initial encounter S92.912A Encounter type: initial encounter Laterality: left Injury of left foot, initial encounter S99.922A Encounter type: initial encounter Time Spent (min) 40 Comment Reviewing chart/mvpv-bg-wdyl/follow-up on x-ray/coordination of care
[2025-01-09 10:21] VITALS: BP 124/72; PULSE 94; TEMP 36.5; O2SAT 96; BMI 27.1
--- OUTSIDE RECORDS SUMMARY | 2025-01-09 12:23 | XMS_ITS | Clinical Summary ---
Author Organization [facility] Address [address] [place] [id number] Phone Care Team Providers Care Credit Union Manager Name Role Phone Harriet Flanagan MD Primary [...] Lester Payer ID:Not on file Type:HMO Address: [place] [id number] [facility] Member Subscriber Plan / Payer (Ef fective 2019-Present) Name:TaylerHollis Relation to Subscriber:Self Name:TaylerHollis Payer ID:Not on file Type:HMO Address: [place] [id number] Care Teams Credit Union Manager Relationship Specialty Start Date End Date Harriet Flanagan MD [address] [place] [address] PCP - General Internal Medicine 11/16/19 Additional Source Comments The information contained in this document represents components of the legal health record. It is not the complete legal health record.[facility]
== END 2025-01-09 10:37 | disposition home or self-care (01) ==
PROVIDERS: PCP Internal Medicine; Visit Provider Internal Medicine
DX: S92.912A Unspecified fracture of left toe(s), initial encounter for closed fracture (principal); S99.922A Unspecified injury of left foot, initial encounter

== ENCOUNTER → 2025-01-09 10:39 | Outpatient (BNV) | payer OTHER, SELFPAY | PROVIDERS: PCP Internal Medicine; Visit Provider Radiology Diagnostic Radiology | DX: S92.512A Displaced fracture of proximal phalanx of left lesser toe(s), initial encounter for closed fracture (principal) | CPT/HCPCS: 73630 ==

== ENCOUNTER 2025-01-11 13:45 | Outpatient (AMB) | payer OTHER, SELFPAY ==
--- NOTE | 2025-01-11 14:11 | A.OFFVIS_ITS ---
Intake Visit Reasons: Fx left foot/toes Intake Note: Hollis is a 64 year old male who presents today as a new patient for an evaluation of his multiple left toe fracture. Pt states he fell down the stares when he was going to the bathroom in the middle of the night, due to going through the wrong door way. He reports no HX of fractures. Patient has taken Tylenol and ibuprofen for pain and found slight relief. His foot X-ray is in the chart. Patient is currently using his brother's boot and crutches at this time. Impression: Acute fractures of the first through fifth proximal phalanges extending to the distal articular surface in the first proximal phalanx and proximal articular surface of the fifth proximal phalanx. There is possible extension into the proximal articular surface of the fourth proximal phalanx. 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 Small calcaneal spur Allergies No Known Allergies Allergy (Verified 01/09/25 10:24) HPI HPI Fx left foot/toes: Details: The patient is a 64-year-old male past medical history of hyperlipidemia and hypertension who presents with multiple toe fractures of his left foot following a fall down the stairs. The incident occurred when the patient accidentally exited through the wrong door and fell. The patient did not seek immediate emergency care but visited a walk-in clinic two days later due to persistent pain and bleeding from a laceration on the bottom of the toe. The patient reports pain and swelling in the affected toes, impacting mobility and daily activities. The patient has been using a walker, Cam boot and crutches. The patient has no history of diabetes or smoking, which are factors that could delay healing. 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 - Smoking: The patient does not smoke. [facility] Medical History History of gout Elevated liver enzymes History of adenomatous polyp of colon History of basal cell cancer Vitamin D deficiency Family history of prostate cancer Essential hypertension Dyslipidemia Chronic left hip pain Surgical History History of colonoscopy Family History Father No problems noted. Mother HTN (hypertension) Brain aneurysm Brother Medical history non-contributory Brother No problems noted. Sister No problems noted. Son No problems noted. Maternal Uncle Prostate cancer Social History Housing: House Alcohol intake: current Patient Tobacco Use Status: Never used Tobacco e-Cigarette/Vaping Use: Never Used service: No Current occupational status: employed Cognitive needs: No Hearing needs: No Vision needs: No Review of Systems Const All systems reviewed & are unremarkable except as noted in HPI and below Physical Exam Extrem Other: *Bilateral Lower Extremity Focused Exam Vascular: DP/PT 2/4 bilaterally, CFT less than 3 seconds all digits, temperature gradient warm to cool. Left dorsal forefoot with moderate nonpitting edema. Derm: Mild ecchymosis to the left forefoot digits 1 through 5. Plantar left 5th digit sulcus 1.5 cm by 0.3 cm laceration/open wound, depth to the level of subcutaneous tissue. No exposed tendon or bone. No erythema drainage or clinical signs of infection. Neuro: Protective sensation grossly intact to bilateral lower extremities. MSK: Digital range of motion intact to left foot. Ankle range of motion intact without pain. Moderate pain on palpation along the plantar left 5th sulcus. All digits appear rectus without any deformity. There is no pain patient or stress left midfoot/Lisfranc joint, subtalar joint, and ankle joint. Office Procedures AMB Podiatry Dressing Details of Procedure: The left 5th toe base was irrigated and cleansed using chlorhexidine wash and alcohol. The open wound was dressed with mupirocin 2% ointment, reapproximated using Steri-Strips, and dressed using Betadine-gauze splint strapping in a plantar flexed position. It was then further secured using 2-inch Naveed and tape. 00499 Strapping of foot/toe Procedure code (CPT) selection complete Results Reviewed Results Reviewed: Podiatry X-ray Read: 01/09/2025 X-ray left foot 3 views (AP, MO, Lateral) reviewed which shows comminuted minimally displaced intra-articular fracture of the 1st digit proximal phalanx head, intra-articular nondisplaced fracture of the 1st digit distal phalanx; spiral extra-articular fracture of the 2nd proximal phalanx diaphysis with 1 mm of lateral displacement, no angular deformity; comminuted extra-articular 3rd digit proximal phalanx diaphysis fracture with minimal lateral translation; 4th digit proximal phalanx base transverse extra-articular fracture nondisplaced, 5th digit proximal phalanx medial condylar base avulsion fracture, minimally displaced. Bone density is within normal limits. There is evidence of forefoot swelling. No foreign body, or calcifications. I personally reviewed the imaging and my findings are listed above. Assessment & Plan Assessment & Plan (1) Open fracture of toe of left foot: Code(s): S92.912B - Unspecified fracture of left toe(s), initial encounter for open fracture Category: Medical Qualifiers: Encounter type: initial encounter Toe: lesser toe Phalanx: proximal Fracture alignment: nondisplaced Qualified Code(s): S92.515B - Nondisplaced fracture of proximal phalanx of left lesser toe(s), initial encounter for open fracture Plan: * Reviewed x-rays with the patient. * Explained that he likely had a left 5th open toe fracture due to the open laceration and wound that continues to bleed. There is no sign of exposed tendon or bone. * Rx Augmentin 875 mg b.i.d. x5 days * The left 5th toe wound was irrigated, debrided, dressed with mupirocin ointment, and strapped with Steri-Strips and Betadine gauze splint. Due to the delayed presentation of the left foot open wound and the patient's history of walking with his foot expose and likely wound contamination, he will be treated with secondary healing. * Discussed the risks of infection to his left 5th toe. Will be monitored closely. * Instructed patient to leave dressings clean dry and intact. * Follow up in 1 week. (2) Wound of left foot: Code(s): S91.302A - Unspecified open wound, left foot, initial encounter Category: Medical Plan: * Leave dressings clean dry and intact. Follow up in 1 week (3) Closed fracture multiple phalanges, toe: Code(s): S92.919A - Unspecified fracture of unspecified toe(s), initial encounter for closed fracture Category: Medical Qualifiers: Encounter type: initial encounter Laterality: left Qualified Code(s): S92.912A - Unspecified fracture of left toe(s), initial encounter for closed fracture Plan: * Reviewed x-rays with the patient. * Discussed closed reduction of left 2nd toe however patient states he does not have concerns with the toe or it appearance. He is amenable to delayed healing of the 2nd toe fracture if it requires him to be in the boot longer. * Continue protected weight-bearing in left foot in a cam boot for at least 4 weeks. Use crutches as needed. Orders: Orders AMB Podiatry Dressing Today S91.302A - Unspecified open wound, left foot, initial encounter, S92.912B - Unspecified fracture of left toe(s), initial encounter for open fracture Medications: New amoxicillin-pot clavulanate 875-125 mg Take 1 tablet twice a day for 5 days. 1 tab PO BID 10 tabs 1RF left foot wound S91.302A - Unspecified open wound, left foot, initial encounter Coding Level of Care Code New Pt Level 5 (19357) Diagnoses Open nondisplaced fracture of proximal phalanx of lesser toe of left foot, initial encounter S92.515B Encounter type: initial encounter Toe: lesser toe Phalanx: proximal Fracture alignment: nondisplaced Wound of left foot S91.302A Closed fracture of multiple phalanges of toe of left foot, initial encounter S92.912A Encounter type: initial encounter Laterality: left CPT Codes Podiatry Dressing - CPT: 80972 Strapping of foot/toe ([id number]) Time Spent (min) 70
--- OUTSIDE RECORDS SUMMARY | 2025-01-11 18:19 | XMS_ITS | Clinical Summary ---
Author Organization [facility] Address [address] [facility] [address] [place] [id number] Phone Care Team Providers Care Fractionating Still Operator Name Role Phone Harriet Flanagan MD Primary [...] Lester Payer ID:Not on file Type:HMO Address: [place] [id number] [facility] Member Subscriber Plan / Payer (Ef fective 2019-Present) Name:TaylerHollis Relation to Subscriber:Self Name:TaylerHollis Payer ID:Not on file Type:HMO Address: [place] [id number] Care Teams Fractionating Still Operator Relationship Specialty Start Date End Date Harriet Flanagan MD [address] [place] [address] PCP - General Internal Medicine 11/16/19 Additional Source Comments The information contained in this document represents components of the legal health record. It is not the complete legal health record.[facility]
== END 2025-01-11 14:56 | disposition home or self-care (01) ==
LOC: HO.HPODS 13:46
PROVIDERS: PCP Internal Medicine; Visit Provider Student in an Organized Health Care Education/Training Program
DX: S92.515B Nondisplaced fracture of proximal phalanx of left lesser toe(s), initial encounter for open fracture (principal); S91.302A Unspecified open wound, left foot, initial encounter; S92.912A Unspecified fracture of left toe(s), initial encounter for closed fracture
CPT/HCPCS: 29550; 99204

== ENCOUNTER → 2025-01-11 13:45 | Outpatient (BNVA) | payer OTHER, SELFPAY | PROVIDERS: PCP Internal Medicine; Visit Provider Student in an Organized Health Care Education/Training Program | DX: S91.302A Unspecified open wound, left foot, initial encounter (principal) | CPT/HCPCS: 29550 ==

== ENCOUNTER 2025-01-19 08:53 | Outpatient (AMB) | payer OTHER, SELFPAY ==
--- NOTE | 2025-01-19 08:55 | A.OFFVIS_ITS ---
Vital Signs 01/19/25 08:56 Height 5 ft 11 in Weight 194 lb BMI 27.1 Intake Visit Reasons: fu Fx left foot/toes Intake Note: Hollis is a 64 year old male who presents today for a follow up for his Left 5th toe open fracture - DOI 01/07/25 when he fell down the stairs. At his last visit the laceration on his 5th toe was irrigates and dressed with steri strips. He was given an Rx of Augmentin. Continues to wear a walking boot. Patient reports that he was able to keep the wound covered until about 2 days later, he was completing dressing changes every two days but in anticipation of being seen today he has just placed a bandaid over it. He feels that his pain is getting better. 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 He did finsish taking the Abx/ Allergies No Known Allergies Allergy (Verified 01/19/25 09:02) HPI HPI fu Fx left foot/toes: Details: The patient is a 64-year-old male past medical history of hyperlipidemia and hypertension who presents when we follow up for left foot multiple digital fractures and open wound following a fall down the stairs. The dressing applied at the last visit was maintained for approximately 2 days. His sister who is a nurse then helped him with wound care. The patient has been using a Cam boot and crutches. 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 He notes he had a couple of close calls where he dropped heavy objects, which almost landed on his feet. He is concerned his CAM boot is not sturdy enough. Mechanism of injury: The incident occurred when the patient accidentally exited through the wrong door and fell. The patient did not seek immediate emergency care but visited a walk-in clinic two days later due to persistent pain and bleeding from a laceration on the bottom of the toe. The patient has no history of diabetes or smoking. 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 - Smoking: The patient does not smoke. [facility] Medical History History of gout Elevated liver enzymes History of adenomatous polyp of colon History of basal cell cancer Vitamin D deficiency Family history of prostate cancer Essential hypertension Dyslipidemia Chronic left hip pain Surgical History History of colonoscopy Family History Father No problems noted. Mother HTN (hypertension) Brain aneurysm Brother Medical history non-contributory Brother No problems noted. Sister No problems noted. Son No problems noted. Maternal Uncle Prostate cancer Social History Housing: House Alcohol intake: current Patient Tobacco Use Status: Never used Tobacco e-Cigarette/Vaping Use: Never Used service: No Current occupational status: employed Cognitive needs: No Hearing needs: No Vision needs: No Physical Exam Vital Signs: BMI result Body Mass Index 27.1 Extrem Other: *Bilateral Lower Extremity Focused Exam Vascular: DP/PT 2/4 bilaterally, CFT less than 3 seconds all digits, temperature gradient warm to cool. Left dorsal forefoot with moderate nonpittin g edema. Derm: Mild ecchymosis to the left forefoot digits 1 through 5. Plantar left 5th digit sulcus wound is healed with neodermal tissue. No erythema drainage or clinical signs of infection. Neuro: Protective sensation grossly intact to bilateral lower extremities. MSK: Digital range of motion intact to left foot. Ankle range of motion intact without pain. Mild pain on palpation along the plantar left 5th sulcus. All digits appear rectus without any deformity. There is no pain patient or stress left midfoot/Lisfranc joint, subtalar joint, and ankle joint. Assessment & Plan Assessment & Plan (1) Open fracture of toe of left foot: Code(s): S92.912B - Unspecified fracture of left toe(s), initial encounter for open fracture Category: Medical Qualifiers: Encounter type: initial encounter Toe: lesser toe Phalanx: proximal Fracture alignment: nondisplaced Qualified Code(s): S92.515B - Nondisplaced fracture of proximal phalanx of left lesser toe(s), initial encounter for open fracture Plan: * Previously reviewed x-rays with the patient. * Rx left foot x-rays to be obtained within 2-3 days prior to his next visit * The patient was dispensed a new short cam boot. Continue weight-bearing in Cam boot, likely for another 4-6 weeks. * Patient was recommended to decrease activity/work as much as possible to allow his left foot fractures to heal. Patient is advised on risk of delayed healing. * Follow up in 3 weeks (2) Wound of left foot: Code(s): S91.302A - Unspecified open wound, left foot, initial encounter Category: Medical Plan: * Patient completed his antibiotic course. * The left 5th toe sulcus was dressed with triple antibiotic ointment and dressed with Band-Aids. * Discussed the continued risks of infection to his left 5th toe. Will be monitored closely. * Patient was instructed to apply antibiotic ointment and Band-Aid daily for the next week. (3) Closed fracture multiple phalanges, toe: Code(s): S92.919A - Unspecified fracture of unspecified toe(s), initial encounter for closed fracture Category: Medical Qualifiers: Encounter type: initial encounter Laterality: left Qualified Code(s): S92.912A - Unspecified fracture of left toe(s), initial encounter for closed fracture Plan: * Reviewed x-rays with the patient. * Discussed closed reduction of left 2nd toe however patient states he does not have concerns with the toe or it appearance. He is amenable to delayed healing of the 2nd toe fracture if it requires him to be in the boot longer. * Continue protected weight-bearing in left foot in a cam boot for at least 4 weeks. Use crutches as needed. Coding Level of Care Code Est Pt Level 3 (10426) Diagnoses Open nondisplaced fracture of proximal phalanx of lesser toe of left foot, initial encounter S92.515B Encounter type: initial encounter Toe: lesser toe Phalanx: proximal Fracture alignment: nondisplaced Wound of left foot S91.302A Closed fracture of multiple phalanges of toe of left foot, initial encounter S92.912A Encounter type: initial encounter Laterality: left Time Spent (min) 25
[2025-01-19 08:56] VITALS: BMI 27.1
--- OUTSIDE RECORDS SUMMARY | 2025-01-19 09:20 | XMS_ITS | Clinical Summary ---
Author Organization [facility] Address [address] [facility] [address] [facility] [address] [place] [phone] Phone Care Team Providers Care Trial Mgr Name Role Phone Harriet Flanagan MD Primary [...] Lester Payer ID:Not on file Type:HMO Address: [place] [id number] [facility] Member Subscriber Plan / Payer (Ef fective 2019-Present) Name:TaylerHollis Relation to Subscriber:Self Name:TaylerHollis Payer ID:Not on file Type:HMO Address: [place] [id number] Care Teams Trial Mgr Relationship Specialty Start Date End Date Harriet Flanagan MD [address] [facility] [place] [address] PCP - General Internal Medicine 11/16/19 Additional Source Comments The information contained in this document represents components of the legal health record. It is not the complete legal health record.[facility]
== END 2025-01-19 09:21 | disposition home or self-care (01) ==
LOC: HO.HPODS 08:54
PROVIDERS: PCP Internal Medicine; Visit Provider Student in an Organized Health Care Education/Training Program
DX: S92.515B Nondisplaced fracture of proximal phalanx of left lesser toe(s), initial encounter for open fracture (principal); S92.912A Unspecified fracture of left toe(s), initial encounter for closed fracture
CPT/HCPCS: 99213

== ENCOUNTER 2025-02-06 14:36 | Outpatient (REF) | payer OTHER, SELFPAY ==
--- NOTE | ~2025-02-06 | XR_ITS ---
EXAMINATION: XR FOOT, LEFT CLINICAL INFORMATION: S92.912A - Unspecified fracture of left toe(s), initial encounter for cl... COMPARISON: 01/09/2025. TECHNIQUE: AP, lateral, and oblique views of the left foot. FINDINGS: Redemonstration of likely comminuted fracture of the first proximal phalanx of the hallux extending into the interphalangeal joint. Fracture lines are slightly more sclerotic, suggesting early healing. Redemonstration of oblique fracture through the proximal phalanx of the second digit, involving the proximal metadiaphysis. There is a tiny about of periosteal new bone formation indicating healing. Similar fractures involving the proximal phalanges of the third, fourth, and fifth digits, without significant change in alignment. Subtle changes of early healing are evident. Remainder of the foot is intact. Mild to moderate degenerative arthrosis at the first MTP joint. Normal plantar arch. Normal midfoot and hindfoot. Tiny plantar calcaneal spur. Soft tissues demonstrate mild swelling in the forefoot, similar. XR/XR foot LT min 3V IMPRESSION: Stable fractures of the first through fifth digits, involving the proximal phalanges, with subtle evidence of early healing and no change in alignment. Electronically signed by: Bruno Robb MD 02/06/2025 03:31 PM EDT
--- OUTSIDE RECORDS SUMMARY | 2025-02-06 19:42 | XMS_ITS | Clinical Summary ---
Author Organization [facility] Address [address] [facility] [address] [place] [address] Phone Care Team Providers Care Wholesale Account Manager Name Role Phone Harriet Flanagan MD [...] you interested in more education? Not on droa e 08/14/2022 Are you concerned about learning? [...] Lester Payer ID:Not on file Type:HMO Address: [place] [id number] [facility] Member Subscriber Plan / Payer (Ef fective 2019-Present) Name:TaylerHollis Relation to Subscriber:Self Name:TaylerHollis Payer ID:Not on file Type:HMO Address: [place] [id number] Care Teams Wholesale Account Manager Relationship Specialty Start Date End Date Harriet Flanagan MD [address] [place] [address] PCP - General Internal Medicine 11/16/19 Additional Source Comments The information contained in this document represents components of the legal health record. It is not the complete legal health record.[facility]
== END 2025-02-06 14:37 | disposition home or self-care (01) ==
LOC: HO.HMGCX 14:36
PROVIDERS: PCP Internal Medicine; Visit Provider Student in an Organized Health Care Education/Training Program
DX: S92.515B Nondisplaced fracture of proximal phalanx of left lesser toe(s), initial encounter for open fracture (principal)
CPT/HCPCS: 73630

== ENCOUNTER → 2025-02-06 15:01 | Outpatient (BNV) | payer OTHER, SELFPAY | PROVIDERS: PCP Internal Medicine; Visit Provider Radiology Diagnostic Radiology | DX: S92.412D Displaced fracture of proximal phalanx of left great toe, subsequent encounter for fracture with routine healing (principal); S92.512D Displaced fracture of proximal phalanx of left lesser toe(s), subsequent encounter for fracture with routine healing | CPT/HCPCS: 73630 ==

== ENCOUNTER 2025-02-09 09:22 | Outpatient (AMB) | payer OTHER, SELFPAY ==
--- NOTE | 2025-02-09 09:29 | A.OFFVIS_ITS ---
Intake Visit Reasons: OV - Left 5th toe open fracture - DOI 01/07/25 Intake Note: Hollis is a 64 year old male who presents today for a follow up for his Left 5th toe open fracture - DOI 01/07/25 when he fell down the stairs. At his last visit he was fit for a new short walking boot and the toe was cleaned and re- dressed. He was instructed to continue daily dressing changes. Patient reports his pain has significantly improved and the recovery has been going well. He has no further questions or concerns at this time. Allergies No Known Allergies Allergy (Verified 02/09/25 09:33) HPI HPI OV - Left 5th toe open fracture - DOI 01/07/25: Details: The patient is a 64-year-old male past medical history of hyperlipidemia and hypertension who presents 3 week follow up for left foot multiple digital fractures. He has been working in his Cam boot. Notes pain and swelling in the morning which improves throughout the day. Mechanism of injury: The incident occurred when the patient accidentally exited through the wrong door and fell. The patient did not seek immediate emergency care but visited a walk-in clinic two days later due to persistent pain and bleeding from a laceration on the bottom of the toe. The patient has no history of diabetes or smoking. 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 - Smoking: The patient does not smoke. [facility] Medical History History of gout Elevated liver enzymes History of adenomatous polyp of colon History of basal cell cancer Vitamin D deficiency Family history of prostate cancer Essential hypertension Dyslipidemia Chronic left hip pain Surgical History History of colonoscopy Family History Father No problems noted. Mother HTN (hypertension) Brain aneurysm Brother Medical history non-contributory Brother No problems noted. Sister No problems noted. Son No problems noted. Maternal Uncle Prostate cancer Social History Housing: House Alcohol intake: current Patient Tobacco Use Status: Never used Tobacco e-Cigarette/Vaping Use: Never Used service: No Current occupational status: employed Cognitive needs: No Hearing needs: No Vision needs: No Review of Systems Const All systems reviewed & are unremarkable except as noted in HPI and below Physical Exam Extrem Other: *Bilateral Lower Extremity Focused Exam Vascular: DP/PT 2/4 bilaterally, CFT less than 3 seconds all digits, temperature gradient warm to cool. Left dorsal forefoot with moderate non- pitting edema. Derm: No ecchymosis to the left forefoot digits 1 through 5. Plantar left 5th digit sulcus wound is healed. No erythema drainage or clinical signs of infection. Neuro: Protective sensation grossly intact to bilateral lower extremities. MSK: Digital range of motion intact to left foot. Ankle range of motion intact without pain. No pain on palpation along the plantar left 5th sulcus. All digits appear rectus without any deformity. There is no pain patient or stress left midfoot/Lisfranc joint, subtalar joint, and ankle joint. Results Reviewed Results Reviewed: Podiatry X-ray Read: 02/09/2025 X-ray left foot 3 views (AP, MO, Lateral) reviewed which shows early callous formation of all digital fractures including: comminuted minimally displaced intra-articular fracture of the 1st digit proximal phalanx head, intra-articular nondisplaced fracture of the 1st digit distal phalanx; spiral extra-articular fracture of the 2nd proximal phalanx diaphysis with 1 mm of lateral displacement, no angular deformity; comminuted extra-articular 3rd digit proximal phalanx diaphysis fracture with minimal lateral translation; 4th digit proximal phalanx base transverse extra-articular fracture nondisplaced, 5th digit proximal phalanx medial condylar base avulsion fracture, minimally displaced. Bone density is within normal limits. There is evidence of forefoot swelling. No foreign body, or calcifications. I personally reviewed the imaging and my findings are listed above. Podiatry X-ray Read: 01/09/2025 X-ray left foot 3 views (AP, MO, Lateral) reviewed which shows comminuted minimally displaced intra-articular fracture of the 1st digit proximal phalanx head, intra-articular nondisplaced fracture of the 1st digit distal phalanx; spiral extra-articular fracture of the 2nd proximal phalanx diaphysis with 1 mm of lateral displacement, no angular deformity; comminuted extra-articular 3rd digit proximal phalanx diaphysis fracture with minimal lateral translation; 4th digit proximal phalanx base transverse extra-articular fracture nondisplaced, 5th digit proximal phalanx medial condylar base avulsion fracture, minimally displaced. Bone density is within normal limits. There is evidence of forefoot swelling. No foreign body, or calcifications. I personally reviewed the imaging and my findings are listed above. Assessment & Plan Assessment & Plan (1) Closed fracture multiple phalanges, toe: Code(s): S92.919A - Unspecified fracture of unspecified toe(s), initial encounter for closed fracture Category: Medical Qualifiers: Encounter type: initial encounter Laterality: left Qualified Code(s): S92.912A - Unspecified fracture of left toe(s), initial encounter for closed fracture Plan: * Reviewed left foot x-rays with the patient. 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 * Rx left foot x-rays to be obtained within 2-3 days prior to his next visit * Patient was recommended to decrease activity/work as much as possible to allow his left foot fractures to heal. Patient is advised on risk of delayed healing. * Continue protected weight-bearing in left foot in a cam boot for next 2 weeks. Instructed to wear a boot at work, and can start using a carbon fiber insole in supportive shoes at home. * Follow up in 1 month with new x-rays Coding Level of Care Code Est Pt Level 3 (02875) Diagnoses Closed fracture of multiple phalanges of toe of left foot, initial encounter S92.912A Encounter type: initial encounter Laterality: left Time Spent (min) 20
--- OUTSIDE RECORDS SUMMARY | 2025-02-09 10:15 | XMS_ITS | Clinical Summary ---
Author Organization [facility] Address [address] [facility] [address] [place] [address] Phone Care Team Providers Care Glazier Structural Glass Name Role Phone Harriet Flanagan MD Primary [...] Lester Payer ID:Not on file Type:HMO Address: [place] [id number] [facility] Member Subscriber Plan / Payer (Ef fective 2019-Present) Name:TaylerHollis Relation to Subscriber:Self Name:TaylerHollis Payer ID:Not on file Type:HMO Address: [place] [id number] Care Teams Glazier Structural Glass Relationship Specialty Start Date End Date Harriet Flanagan MD [address] [address] PCP - General Internal Medicine 11/16/19 Additional Source Comments The information contained in this document represents components of the legal health record. It is not the complete legal health record.[facility]
== END 2025-02-09 09:40 | disposition home or self-care (01) ==
LOC: HO.HPODS 09:23
PROVIDERS: PCP Internal Medicine; Visit Provider Student in an Organized Health Care Education/Training Program
DX: S92.912A Unspecified fracture of left toe(s), initial encounter for closed fracture (principal)
CPT/HCPCS: 99213

== ENCOUNTER 2025-03-20 11:55 | Outpatient (REF) | payer OTHER, SELFPAY ==
--- NOTE | ~2025-03-20 | XR_ITS ---
EXAMINATION: XR FOOT, LEFT CLINICAL INFORMATION: S92.912A - Unspecified fracture of left toe(s), initial encounter for cl... COMPARISON: 02/06/2025 TECHNIQUE: AP, lateral, and oblique views of the left foot. FINDINGS: Again seen are fractures involving the first-fifth proximal phalanges with increasing bridging bone and periosteal new bone formation consistent with interval healing. There is no significant interval shift of fracture fragments and alignment. There is mild osteoarthritis involving the first MTP joint. XR/XR foot LT min 3V IMPRESSION: Healing fractures involving the first - fifth proximal phalanges of the left foot. Electronically signed by: Marcos Perea MD 03/20/2025 12:10 PM [facility]
--- OUTSIDE RECORDS SUMMARY | 2025-03-20 14:05 | XMS_ITS | Clinical Summary ---
Author Organization [facility] Address [address] [facility] [address] [place] [address] Phone Care Team Providers Care Pipelayer Name Role Phone Harriet Flanagan MD Primary [...] Lester Payer ID:Not on file Type:HMO Address: [place] [id number] [facility] Member Subscriber Plan / Payer (Ef fective 2019-Present) Name:TaylerHollis Relation to Subscriber:Self Name:TaylerHollis Payer ID:Not on file Type:HMO Address: [place] [id number] Care Teams Pipelayer Relationship Specialty Start Date End Date Harriet Flanagan MD [address] [place] [address] PCP - General Internal Medicine 11/16/19 Additional Source Comments The information contained in this document represents components of the legal health record. It is not the complete legal health record.[facility]
== END 2025-03-20 11:56 | disposition home or self-care (01) ==
LOC: HO.HMGCLDS 11:55
PROVIDERS: PCP Internal Medicine; Visit Provider Student in an Organized Health Care Education/Training Program
DX: S92.912A Unspecified fracture of left toe(s), initial encounter for closed fracture (principal)
CPT/HCPCS: 73630

== ENCOUNTER → 2025-03-20 11:57 | Outpatient (BNV) | payer OTHER, SELFPAY | PROVIDERS: PCP Internal Medicine; Visit Provider Radiology Diagnostic Radiology | DX: S92.512D Displaced fracture of proximal phalanx of left lesser toe(s), subsequent encounter for fracture with routine healing (principal) | CPT/HCPCS: 73630 ==

== ENCOUNTER 2025-03-21 09:25 | Outpatient (AMB) | payer OTHER, SELFPAY ==
--- NOTE | 2025-03-21 09:28 | MHC.OFFVIS ---
Intake Visit Reasons: OV - left 5th toe open fx, DOI 01/07/25 Intake Note: Hollis is a 65 year old male who presents today for a follow up of his Left 5th toe open fracture, DOI 01/07/25. At his last visit patient was advised to continue to wear his boot for 2 more weeks and then transition to well supported shoe with a carbon fiber insole. Patient reports he is doing well and he is wearing supported shoes. Allergies No Known Allergies Allergy (Verified 03/21/25 09:32) HPI HPI OV - left 5th toe open fx, DOI 01/07/25: Details: The patient is a 64-year-old male past medical history of hyperlipidemia and hypertension who presents 1 month follow up for left foot multiple digital fractures. He transitioned out of his Cam boot. No longer experiencing any pain or swelling to his feet. Mechanism of injury: The incident occurred when the patient accidentally exited through the wrong door and fell. The patient did not seek immediate emergency care but visited a walk-in clinic two days later due to persistent pain and bleeding from a laceration on the bottom of the toe. The patient has no history of diabetes or smoking. 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 - Smoking: The patient does not smoke. [facility] Medical History History of gout Elevated liver enzymes History of adenomatous polyp of colon History of basal cell cancer Vitamin D deficiency Family history of prostate cancer Essential hypertension Dyslipidemia Chronic left hip pain Surgical History History of colonoscopy Family History Father No problems noted. Mother HTN (hypertension) Brain aneurysm Brother Medical history non-contributory Brother No problems noted. Sister No problems noted. Son No problems noted. Maternal Uncle Prostate cancer Social History Housing: House Alcohol intake: current Patient Tobacco Use Status: Never used Tobacco e-Cigarette/Vaping Use: Never Used service: No Current occupational status: employed Cognitive needs: No Hearing needs: No Vision needs: No Review of Systems Const All systems reviewed & are unremarkable except as noted in HPI and below Physical Exam Extrem Other: *Bilateral Lower Extremity Focused Exam Vascular: DP/PT 2/4 bilaterally, CFT less than 3 seconds all digits, temperature gradient warm to cool. No left foot edema. Derm: No ecchymosis to the left forefoot digits 1 through 5. Plantar left 5th digit sulcus wound is healed. No erythema drainage or clinical signs of infection. Neuro: Protective sensation grossly intact to bilateral lower extremities. MSK: Digital range of motion intact to left foot. Ankle range of motion intact without pain. No pain on palpation along the plantar left 5th sulcus. All digits appear rectus without any deformity. There is no pain patient or stress left midfoot/Lisfranc joint, subtalar joint, and ankle joint. Results Reviewed Results Reviewed: X-ray Read: 03/20/2025 X-ray left foot 3 views (AP, MO, Lateral) reviewed which shows significant callous formation of all digital fractures including: comminuted minimally displaced intra-articular fracture of the 1st digit proximal phalanx head, intra-articular nondisplaced fracture of the 1st digit distal phalanx; spiral extra-articular fracture of the 2nd proximal phalanx diaphysis with 1 mm of lateral displacement, no angular deformity; comminuted extra-articular 3rd digit proximal phalanx diaphysis fracture with minimal lateral translation; 4th digit proximal phalanx base transverse extra-articular fracture nondisplaced, 5th digit proximal phalanx medial condylar base avulsion fracture, minimally displaced. Bone density is within normal limits. No foreign body, or calcifications. I personally reviewed the imaging and my findings are listed above. X-ray Read: 02/09/2025 X-ray left foot 3 views (AP, MO, Lateral) reviewed which shows early callous formation of all digital fractures including: comminuted minimally displaced intra-articular fracture of the 1st digit proximal phalanx head, intra-articular nondisplaced fracture of the 1st digit distal phalanx; spiral extra-articular fracture of the 2nd proximal phalanx diaphysis with 1 mm of lateral displacement, no angular deformity; comminuted extra-articular 3rd digit proximal phalanx diaphysis fracture with minimal lateral translation; 4th digit proximal phalanx base transverse extra-articular fracture nondisplaced, 5th digit proximal phalanx medial condylar base avulsion fracture, minimally displaced. Bone density is within normal limits. There is evidence of forefoot swelling. No foreign body, or calcifications. I personally reviewed the imaging and my findings are listed above. X-ray Read: 01/09/2025 X-ray left foot 3 views (AP, MO, Lateral) reviewed which shows comminuted minimally displaced intra-articular fracture of the 1st digit proximal phalanx head, intra-articular nondisplaced fracture of the 1st digit distal phalanx; spiral extra-articular fracture of the 2nd proximal phalanx diaphysis with 1 mm of lateral displacement, no angular deformity; comminuted extra-articular 3rd digit proximal phalanx diaphysis fracture with minimal lateral translation; 4th digit proximal phalanx base transverse extra-articular fracture nondisplaced, 5th digit proximal phalanx medial condylar base avulsion fracture, minimally displaced. Bone density is within normal limits. There is evidence of forefoot swelling. No foreign body, or calcifications. I personally reviewed the imaging and my findings are listed above. Assessment & Plan Assessment & Plan (1) Closed fracture multiple phalanges, toe: Code(s): S92.919A - Unspecified fracture of unspecified toe(s), initial encounter for closed fracture Category: Medical Qualifiers: Encounter type: initial encounter Laterality: left Qualified Code(s): S92.912A - Unspecified fracture of left toe(s), initial encounter for closed fracture Plan: Reviewed left foot x-rays with the patient. 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 Rx left foot x-rays to be obtained within 2-3 days prior to his next visit May slowly transition to normal activities as tolerated Follow up in 2-3 months for final x-rays Coding Level of Care Code Est Pt Level 3 (91236) Diagnoses Closed fracture of multiple phalanges of toe of left foot, initial encounter S92.912A Encounter type: initial encounter Laterality: left Time Spent (min) 25
--- OUTSIDE RECORDS SUMMARY | 2025-03-21 10:16 | XMS_ITS | Clinical Summary ---
Author Organization [facility] Address [address] [place] [id number] Phone Care Team Providers Care Automatic Furnace Operator Name Role Phone Harriet Flanagan MD [...] Lester Payer ID:Not on file Type:HMO Address: [place] [id number] [facility] Member Subscriber Plan / Payer (Ef fective 2019-Present) Name:TaylerHollis Relation to Subscriber:Self Name:TaylerHollis Payer ID:Not on file Type:HMO Address: [place] [phone] Care Teams Automatic Furnace Operator Relationship Specialty Start Date End Date Harriet Flanagan MD [address] [place] [id number] PCP - General Internal Medicine 11/16/19 Additional Source Comments The information contained in this document represents components of the legal health record. It is not the complete legal health record.[facility]
== END 2025-03-21 09:38 | disposition home or self-care (01) ==
LOC: HO.HPODS 09:26
PROVIDERS: PCP Internal Medicine; Visit Provider Student in an Organized Health Care Education/Training Program
DX: S92.912A Unspecified fracture of left toe(s), initial encounter for closed fracture (principal)
CPT/HCPCS: 99213